=== PATIENT | female | born 1960 | race African-American/Black ===

== ENCOUNTER 2020-06-05 18:00 | Emergency (ER) | payer BC ==
[2020-06-05] MEDS ORDERED: MORPHINE 4 MG/ML SYR ONE (20:22)
[2020-06-05 20:23] LABS: Absolute Lymphocytes (CBC) 1.6 K/uL (0.7-4.9); Basophils % 0.8 % (0-1.3); Hematocrit 41.7 % (36.0-45.0); Lymphocytes % 27.5 % (15.3-44.8); MPV 8.3 fL (7.6-11.3); RBC Red Blood Cell Count 5.08 M/uL (3.86-4.86)
[2020-06-05] MEDS ORDERED: NA CHLORIDE 0.9% 1,000 ML ONE (20:23)
[2020-06-05] MEDS ORDERED: ONDANSETRON 4 MG/2 ML VIAL ONE (20:23)
[2020-06-05 20:33] LABS: ALT/SGPT 24 U/L (12-78); AST/SGOT 16 U/L (15-37); Albumin 3.8 g/dL (3.4-5.0); Alkaline Phosphatase 129 U/L (45-117); BUN Blood Urea Nitrogen 12 mg/dL (7-18); Bicarbonate 30 mmol/L (21-32); Bilirubin Direct < 0.1 mg/dL (0-0.2); Bilirubin Total 0.6 mg/dL (0.2-1.0); Glucose Level 95 mg/dL (74-106); Lipase 104 U/L (73-393); Potassium 3.8 mmol/L (3.5-5.1); Protein, Total 8.2 g/dL (6.4-8.2); Sodium Level 141 mmol/L (136-145)
--- NOTE | 2020-06-05 20:49 | RAD REPORT ---
EXAM DESCRIPTION: CT - Abdomen Pelvis W Contrast - 06/05/2020 8:34 pm CLINICAL HISTORY: ABD PAIN COMPARISON: No comparisons TECHNIQUE: Biphasic, helical CT imaging of the abdomen and pelvis was performed following 100 ml non -ionic IV contrast. No oral contrast administered. All CT scans are performed using dose optimization technique as appropriate and may include automated exposure control or mA/KV adjustment according to patient size. FINDINGS: No suspicious findings in the lung bases. The liver, spleen, and pancreas show no suspicious findings. Gallbladder and biliary tree are also wi thout suspicious finding. Symmetric renal function is seen with no hydronephrosis or suspicious renal mass. No pyelonephritis o r acute parenchymal process. No bladder abnormalities. No adrenal abnormalities. Uterus is absent. No ovarian abnormalities. No dilated bowel loops or bowel wall thickening. No appendicitis findings. No active bowel process se en. No free air, free fluid or inflammatory stranding. No hernia, mass or bulky lymphadenopathy. No suspicious bony findings. IMPRESSION: Contrast enhanced CT abdomen and pelvis showing no significant or suspicious finding.
[2020-06-05] MEDS ORDERED: LIDOCAINE VISCOUS 2% SOLN 15 ML UDC ONE (21:06)
[2020-06-05] MEDS ORDERED: FAMOTIDINE 20 MG TAB ONE (21:06)
[2020-06-05] MEDS ORDERED: MAGNES/ALUMIN/SIMET 30ML UCUP ONE (21:06)
--- NOTE | 2020-06-05 21:40 | ER ---
Nurse's Notes [facility] Name: Adriana Sinclair Age: 59 yrs Sex: Female : 1960 Arrival Date: 06/05/2020 Time: 18:00 Bed 20 Private MD: Diagnosis: Abdominal pain Presentation: 06/05 18:35 Chief complaint: Patient states: upper abdominal pain, epigastric pain radiating to ca1 chest and breast to head. It feels like acid reflux going to my head. It started yesterday. Reports diarrhea. Denies N/V. Coronavirus screen: Client denies travel out of the [place] in the last 14 days. diarrhea, Client presents with at least one sign or symptom that may indicate coronavirus-19. Standard/surgical mask placed on the client. Provider contacted for isolation considerations. Ebola Screen: Patient negative for fever greater than or equal to 101.5 degrees Fahrenheit, and additional compatible Ebola Virus Disease symptoms Patient denies exposure to infectious person. Patient denies travel to an Ebola-affected area in the 21 days before illness onset. No symptoms or risks identified at this time. Initial Sepsis Screen: Does the patient meet any 2 criteria? No. Patient's initial sepsis screen is negative. Does the patient have a suspected source of infection? No. Patient's initial sepsis screen is negative. Risk Assessment: Do you want to hurt yourself or someone else? Patient reports no desire to harm self or others. Onset of symptoms was June 05, 2020. 18:35 Method Of Arrival: Ambulatory ca1 18:35 Acuity: JORGE 2 ca1 Historical: - Allergies: 18:40 Aspirin; ca1 - Home Meds: 18:40 Folic Acid Oral [Active]; Dexilant oral oral [Active]; Ativan Oral as needed [Active]; ca1 Lexapro Oral [Active]; Carafate Oral [Active]; - PMHx: 18:40 Anxiety; Gastric Reflux; Aneurysm; ca1 - PSHx: 18:40 craniotomy; Hysterectomy; ca1 - Immunization history:: Adult Immunizations up to date, Flu vaccine is not up to date. - Social history:: Smoking status: Patient denies any tobacco usage or history of. Screenin:02 Abuse screen: Denies threats or abuse. Nutritional screening: No deficits noted. jd3 Tuberculosis screening: No symptoms or risk factors identified. Fall Risk Ambulatory Aid- None/Bed Rest/Nurse Assist (0 pts). Gait- Normal/Bed Rest/Wheelchair (0 pts) Mental Status- Oriented to own ability (0 pts). Total Red Fall Scale indicates No Risk (0-24 pts). Assessment: 18:59 General: Appears in no apparent distress. uncomfortable, Behavior is calm, cooperative, jd3 appropriate for age. Pain: Complains of pain in epigastric area Quality of pain is described as burning. Neuro: Level of Consciousness is awake, alert, obeys commands, Oriented to person, place, time, situation. Cardiovascular: Heart tones present Capillary refill < 3 seconds Patient's skin is warm and dry. Rhythm is regular. Respiratory: Airway is patent Respiratory effort is even, unlabored, Respiratory pattern is regular, symmetrical, Breath sounds are clear bilaterally. GI: Abdomen is round Bowel sounds present X 4 quads. Abd is soft and non tender X 4 quads. Reports nausea. : No signs and/or symptoms were reported regarding the genitourinary system. EENT: No signs and/or symptoms were reported regarding the EENT system. Derm: Skin is intact, Skin is dry, Skin is normal, Skin temperature is warm. Musculoskeletal: Circulation, motion, and sensation intact. Range of motion: intact in all extremities. 21:00 Reassessment: patient complaint of acid problem, ED provider aware with order made and rr5 carried out. 22:00 Reassessment: Patient appears in no apparent distress at this time. Patient is alert, rr5 oriented x 3, equal unlabored respirations, skin warm/dry/pink. discharge instruction given and explained without complaints made. Patient states feeling better. Patient states symptoms have improved. Vital Signs: 18:35 BP 136 / 90; Pulse 77; Resp 16 S; Temp 97.7(TE); Pulse Ox 100% on R/A; Weight 82.55 kg ca1 (R); Height 5 ft. 10 in. (177.80 cm) (R); Pain 9/10; 19:03 BP 158 / 76; Pulse 69; Resp 19 S; Pulse Ox 99% on R/A; jd3 21:00 BP 146 / 80; Pulse 65; Resp 19; Pulse Ox 99% ; rr5 22:00 BP 131 / 75; Pulse 60; Resp 17; Temp 98; Pulse Ox 99% ; rr5 18:35 Body Mass Index 26.11 (82.55 kg, 177.80 cm) ca1 ED Course: 18:00 Patient arrived in ED. ag5 18:38 Triage completed. ca1 18:40 Arm band placed on right wrist. ca1 18:51 Dwight Horowitz RN is Primary Nurse. jd3 19:02 Patient has correct armband on for positive identification. Placed in gown. Bed in low jd3 position. Call light in reach. Side rails up X 1. Adult w/ patient. security monitor on. Pulse ox on. NIBP on. 19:16 Rick Lewis MD is Attending Physician. pkl 20:20 Inserted saline lock: 20 gauge in right antecubital area, using aseptic technique. rr5 ,using aseptic technique. inserted by [facility] Blood collected. 20:34 CT Abd/Pelvis - IV Contrast Only In Process Unspecified. EDMS 22:00 No provider procedures requiring assistance completed. IV discontinued, intact, rr5 bleeding controlled, No redness/swelling at site. Pressure dressing applied. Administered Medications: 20:28 Drug: Zofran (Ondansetron) 4 mg Route: IVP; Site: right antecubital; rr5 21:10 Follow up: Response: No adverse reaction rr5 20:40 Drug: NS 0.9% 1000 ml Route: IV; Rate: 125 ml/hr; Site: right antecubital; rr5 22:00 Follow up: Response: No adverse reaction; IV Status: Order to discontinue infusion; IV rr5 Intake: 150ml 20:40 Drug: morphine 4 mg {Note: rass 0.} Route: IVP; Site: right antecubital; rr5 21:40 Follow up: Response: No adverse reaction; Pain is decreased; RASS: Alert and Calm (0) rr5 21:00 Drug: GI Cocktail without - (Maalox Suspension 30 ml, Lidocaine Liquid 2 % 15 rr5 ml) Route: PO; 22:00 Follow up: Response: No adverse reaction; Marked relief of symptoms rr5 21:02 Drug: Pepcid 20 mg Route: PO; rr5 22:00 Follow up: Response: No adverse reaction; Marked relief of symptoms rr5 Intake: 22:00 IV: 150ml; Total: 150ml. rr5 Outcome: 21:40 Discharge ordered by . sawyer 22:00 Discharged to home ambulatory. rr5 22:00 Condition: stable 22:00 Discharge instructions given to patient, Instructed on discharge instructions, follow up and referral plans. Demonstrated understanding of instructions, follow-up care. 22:03 Patient left the ED. rr5 Signatures: Dispatcher [employer] EDRick Patel MD MD pkl Davies, Jonathon, RN RN jd3 Roque, Raymond, RN RN rr5 Ange Montes RN RN ca1 Lauren Patricia 5
--- NOTE | 2020-06-05 21:41 | EDPHYS ---
Physician Documentation [facility] Name: Adriana Sinclair Age: 59 yrs Sex: Female : 1960 Arrival Date: 06/05/2020 Time: 18:00 Bed 20 Private MD: ED Physician Rick Lewis HPI: 06/05 19:51 This 59 yrs old Black Female presents to ER via Ambulatory with complaints of Abdominal pkl Pain, Chest Pain. 19:52 The patient presents with abdominal pain in the lower abdomen. Onset: The pkl symptoms/episode began/occurred last night. The symptoms radiate to radiating to chest. Associated signs and symptoms: Pertinent positives: diarrhea. Historical: - Allergies: 18:40 Aspirin; ca1 - Home Meds: 18:40 Folic Acid Oral [Active]; Dexilant oral oral [Active]; Ativan Oral as needed [Active]; ca1 Lexapro Oral [Active]; Carafate Oral [Active]; - PMHx: 18:40 Anxiety; Gastric Reflux; Aneurysm; ca1 - PSHx: 18:40 craniotomy; Hysterectomy; ca1 - Immunization history:: Adult Immunizations up to date, Flu vaccine is not up to date. - Social history:: Smoking status: Patient denies any tobacco usage or history of. ROS: 19:52 Eyes: Negative for injury, pain, redness, and discharge, ENT: Negative for injury, pkl pain, and discharge, Neck: Negative for injury, pain, and swelling, Cardiovascular: Negative for chest pain, palpitations, and edema, Respiratory: Negative for shortness of breath, cough, wheezing, and pleuritic chest pain. 19:52 Abdomen/GI: Positive for abdominal pain, of the right lower quadrant and left lower quadrant. 19:52 Back: Negative for pain at rest. 19:52 : Negative for urinary symptoms. 19:52 MS/extremity: Negative for acute changes. 19:52 Skin: Negative for rash. 19:52 Neuro: Negative for altered mental status. Exam: 19:52 Head/Face: Normocephalic, atraumatic. Eyes: Pupils equal round and reactive to light, pkl extra-ocular motions intact. Lids and lashes normal. Conjunctiva and sclera are non-icteric and not injected. Cornea within normal limits. Periorbital areas with no swelling, redness, or edema. ENT: Nares patent. No nasal discharge, no septal abnormalities noted. Tympanic membranes are normal and external auditory canals are clear. Oropharynx with no redness, swelling, or masses, exudates, or evidence of obstruction, uvula midline. Mucous membranes moist. Neck: Trachea midline, no thyromegaly or masses palpated, and no cervical lymphadenopathy. Supple, full range of motion without nuchal rigidity, or vertebral point tenderness. No Meningismus. Chest/axilla: Normal chest wall appearance and motion. Nontender with no deformity. No lesions are appreciated. Cardiovascular: Regular rate and rhythm with a normal S1 and S2. No gallops, murmurs, or rubs. Normal PMI, no JVD. No pulse deficits. Respiratory: Lungs have equal breath sounds bilaterally, clear to auscultation and percussion. No rales, rhonchi or wheezes noted. No increased work of breathing, no retractions or nasal flaring. 19:52 Abdomen/GI: Bowel sounds: normal, Palpation: soft, mild abdominal tenderness, in the right lower quadrant and left lower quadrant. 19:52 Back: Exam negative for acute changes. 19:52 : Exam negative for acute changes. 19:52 Musculoskeletal/extremity: Exam is negative for acute changes. 19:52 Skin: Exam negative for rash. 19:52 Neuro: Orientation: is normal, Mentation: is normal, Cranial nerves: grossly normal, Motor: is normal. Vital Signs: 18:35 BP 136 / 90; Pulse 77; Resp 16 S; Temp 97.7(TE); Pulse Ox 100% on R/A; Weight 82.55 kg ca1 (R); Height 5 ft. 10 in. (177.80 cm) (R); Pain 9/10; 19:03 BP 158 / 76; Pulse 69; Resp 19 S; Pulse Ox 99% on R/A; jd3 21:00 BP 146 / 80; Pulse 65; Resp 19; Pulse Ox 99% ; rr5 22:00 BP 131 / 75; Pulse 60; Resp 17; Temp 98; Pulse Ox 99% ; rr5 18:35 Body Mass Index 26.11 (82.55 kg, 177.80 cm) ca1 MDM: 19:16 Patient medically screened. pkl 21:32 Data reviewed: vital signs, nurses notes, lab test result(s), radiologic studies, CT pkl scan. 21:36 Data reviewed: vital signs, nurses notes, lab test result(s), radiologic studies, CT pkl scan. ED course: Patient feeling better. Discussed lab and CT Scan results with patient. Advised to follow up with her Paralegal Instructor as scheduled. Patient understood instructions. 06/05 19:48 Order name: Basic Metabolic Panel; Complete Time: 21:31 pkl 06/05 19:48 Order name: CBC with Diff; Complete Time: 21:31 pkl 06/05 19:48 Order name: Hepatic Function; Complete Time: 21:31 pkl 06/05 19:48 Order name: Lipase; Complete Time: 21:31 pkl 06/05 19:48 Order name: CT Abd/Pelvis - IV Contrast Only; Complete Time: 21:31 pkl 06/05 18:51 Order name: EKG; Complete Time: 18:51 ca1 06/05 18:51 Order name: EKG - Nurse/Tech; Complete Time: 18:51 ca1 06/05 19:48 Order name: IV Saline Lock; Complete Time: 20:09 pkl 06/05 19:48 Order name: Labs collected and sent; Complete Time: 20:09 pkl Administered Medications: 20:28 Drug: Zofran (Ondansetron) 4 mg Route: IVP; Site: right antecubital; rr5 21:10 Follow up: Response: No adverse reaction rr5 20:40 Drug: NS 0.9% 1000 ml Route: IV; Rate: 125 ml/hr; Site: right antecubital; rr5 22:00 Follow up: Response: No adverse reaction; IV Status: Order to discontinue infusion; IV rr5 Intake: 150ml 20:40 Drug: morphine 4 mg {Note: rass 0.} Route: IVP; Site: right antecubital; rr5 21:40 Follow up: Response: No adverse reaction; Pain is decreased; RASS: Alert and Calm (0) rr5 21:00 Drug: GI Cocktail without - (Maalox Suspension 30 ml, Lidocaine Liquid 2 % 15 rr5 ml) Route: PO; 22:00 Follow up: Response: No adverse reaction; Marked relief of symptoms rr5 21:02 Drug: Pepcid 20 mg Route: PO; rr5 22:00 Follow up: Response: No adverse reaction; Marked relief of symptoms rr5 Disposition: 06/05/20 21:40 Discharged to Home. Impression: Abdominal pain. - Condition is Stable. - Medication Reconciliation Form, Thank You Letter, Antibiotic Education, Prescription Opioid Use form. - Follow up: Private Physician; When: 2 - 3 days; Reason: Re-evaluation by your physician. - Problem is new. - Symptoms have improved. Signatures: Dispatcher [employer] EDMS Rick Lewis MD MD pkl Sascha Murphy RN RN rr5 Ange Montes RN RN ca1 Corrections: (The following items were deleted from the chart) 22:03 21:40 06/05/2020 21:40 Discharged to Home. Impression: Abdominal pain. Condition is rr5 Stable. Forms are Medication Reconciliation Form, Thank You Letter, Antibiotic Education, Prescription Opioid Use. Follow up: Private Physician; When: 2 - 3 days; Reason: Re-evaluation by your physician. Problem is new. Symptoms have improved. pkl
[2020-06-06 07:33] VITALS: TEMP 97.7
[2020-06-06 07:37] VITALS: O2SAT 99
[2020-06-06 07:38] VITALS: BP 146/80
--- NOTE | 2020-06-06 12:05 | EKG ---
Test Date: 2020-06-05 Test Time: 18:54:34 Data Management Engineer: SATISH MEASUREMENT RESULTS: Intervals: Rate: 70 OK: 114 QRSD: 90 QT: 390 QTc: 421 [place]: P: 8 OK: 114 QRS: 17 T: -50 INTERPRETIVE STATEMENTS: Normal sinus rhythm Left ventricular hypertrophy with repolarization abnormality Abnormal ECG Compared to ECG 03/08/2008 01:27:28 Left ventricular hypertrophy now present Early repolarization now present Electronically Signed On 06-06-20 12:03:12 [employer] OFFICER by Bo Grady
== END 2020-06-05 22:03 | disposition home or self-care (01) ==
LOC: ER 18:00
DX: R10.30 Lower abdominal pain, unspecified (principal); K21.9 Gastro-esophageal reflux disease without esophagitis; F41.9 Anxiety disorder, unspecified; Z88.6 Allergy status to analgesic agent
CPT/HCPCS: 96361; 93005; 85025; 80048; 36415; 82565; 80076; 83690; 74177; 96375; 96374; 99284; Q9967; J7030; J2405

== ENCOUNTER 2021-09-23 13:00 | Emergency (ER) | payer OTHER, SELFPAY ==
--- OUTSIDE RECORDS SUMMARY | 2021-09-23 13:05 | XMS REPORT | Continuity of Care Document ---
:1960 Author Organization [facility] t Address [address] [place] [address] Care Team Providers Name Role Phone Raz Doll Primary Care Physician VENKATESH Attending Clinician Unavailable NAVEED CASTELLON Attending Clinician Unavailable MD JUSTYN FRAZIER Attending Clinician Unavailable FREDDIE Attending Clinician Unavailable Nurse, Pob Immunization Attending Clinician Unavailable Agusto Stacy DO Attending Clinician Taylor Way APRN Attending Clinician AUREA Attending Clinician Unavailable MD Mary MILAN Attending Clinician Unavailable BJORN Attending Clinician Unavailable Doctor Unassigned, Name Attending Clinician Unavailable Singer PAULA Attending Clinician Attending Clinician Unavailable Heladio HUYNH Attending Clinician Naveed Castellon MD Attending Clinician Venkatesh HUYNH Attending Clinician TIM Attending Clinician Unavailable PROCEDURE Attending Clinician Unavailable SUE Attending Clinician Unavailable CARTER Attending Clinician Unavailable POP Attending Clinician Unavailable V[place]a HONEYCUTT Attending Clinician Unavailable ARIANA Attending Clinician Unavailable BERENICE Attending Clinician Unavailable VASCULAR Attending Clinician Unavailable VENKATESH Admitting Clinician Unavailable NAVEED CASTELLON Admitting Clinician Unavailable MD JUSTYN FRAZIER Admitting Clinician Unavailable AUREA Admitting Clinician Unavailable MD Mary MILAN Admitting Clinician Unavailable Payers Payer Name Policy Type Policy Number Effective Date Expiration Date Melissa DURAN OPEN [id number] 2016 2017 00:00:00 ACCESS HMO NAP 00:00:00 Problems Condition Condition Condition Status Onset Resolution Last Treating Co mments Source Name Details Category Date Date Treatment Clinician Date Venous Venous Disease Active 2017-07 [facility] insufficie insufficie 0-31 Co llege ncy ncy 00:00: of 00 Medicin e Pain of Pain of Disease Active 2017-07 [facility] left lower left lower 0-31 Co llege extremity extremity 00:00: of 00 Medicin e NUMBNESS/T Diagnosis Active 2016-09-17 Memoria INGLING LT 2-21 14:01:00 l HAND 00:00: Maximiliano NUMBNESS/T 00 INGLING LT HAND Active 09/17/2016 [facility] I67.1 - Diagnosis Active 2016-02-16 Me moria "CEREBRAL 7-13 12:02:00 l ANEURYSM, I67.1 - 00:01: Herm ivette NONRUPTURE "CEREBRAL 00 D" ANEURYSM, NONRUPTURE D" Active 6 OPIRaz Maximiliano Essential Essential Disease Active 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 [facility] OPID [place] BDDC/ Diagnosis Active 2013-072014-06-09 Mem oria IRRITABLE 0-02 15:32:00 l BOWEL BDDC/ 00:00: Maximiliano SYNDROME IRRITABLE 00 BOWEL SYNDROME Active 04/28/2014 [facility] Anxiety Problem Active 2017-05-10 Asael kristan state 9- 01:25:08 l (finding) Anxiety 00:00: Herm ivette state 00 (finding) Active 04/19/2014 Problem 05/10/2017 Data migrated from Patient Feed on 12/26/14. [facility] OPID Maximiliano Cervical Problem Active 2017-05-10 Mem [facility]ria radiculopa 04-19 01:25:08 l thy Cervical 00:00: [place] n (disorder) radiculopa 00 thy (disorder) Active 04/19/2014 Problem 05/10/2017 Data migrated from Patient Feed on 12/26/14. [facility] OPID [place] Temporal Problem Active 2017-05-10 Mem oria arteritis 04-19 01:25:08 l (disorder) Temporal 00:00: He rmann arteritis 00 (disorder) Active 04/19/2014 Problem 05/10/2017 Data migrated from Patient Feed on 12/26/14. [facility] JANRaz Maximiliano Memory Memory Disease Active [facility] loss loss 6-18 College 00:00: of 00 Medicin e GERD/ SAW Diagnosis Active 2014-04-[address] 01-11 08:50:00 l YEARS AGO GERD/ 00:00: Coleman L[address] 5 YEARS AGO Active 01/11/2014 [facility] Laryngopha Laryngopha Disease Active [facility] ryngeal ryngeal 1-30 College reflux reflux 00:00: of (LPR) (LPR) 00 Medicin e Monoclonal Monoclonal Disease Active 2012-07 [facility] gammopathy gammopathy 2-30 Co llege 00:00: of 00 Medicin e Memory Memory Disease Active [facility] loss loss 7-03 College 00:00: of 00 Medicin e Multiple Multiple Disease Active [facility] thyroid thyroid 3-22 College nodules nodules 00:00: of 00 Medicin e Cerebral Cerebral Disease Active [facility] aneurysm aneurysm 2-12 Colleg e 00:00: of 00 Medicin e FERNANDO FERNANDO Disease Active [facility] (generaliz (generaliz 2-12 Co llege ed anxiety ed anxiety 00:00: of disorder) disorder) 00 Medi rose e Migraine Problem Active 2011-072017-05-10 Mem oria without 0-18 01:25:08 l aura Migraine 00:00: Coleman n (disorder) without 00 aura (disorder) Active 05/14/2012 Problem 05/10/2017 Data migrated from [facility] on 12/26/14. [facility] UNA Maximiliano [id number] - Diagnosis Active 2011-12-19 M emoria CEREBROSPI 2-16 20:05:00 l NAL R [id number] - 00:01: Coleman n CEREBROSPI 00 NAL R Active 09/12/2011 OPID Maximiliano F/U Diagnosis Active 2011-12-27 Mem oria - 17:04:00 l F/U 00:00: Maximiliano 00 Active 08/06/2011 [facility] HEAD Diagnosis Active 2010-072011-07-26 Mem oria SWELLING. 09-23 14:11:00 l HEAD 00:00: [place] SWELLING. 00 Active 07/23/2011 [facility] OTHER Diagnosis Active 2010-072011-07-19 Mem oria 09-19 17:13:00 l OTHER 00:00: Maximiliano 00 Active 07/19/2011 [facility] Aneurysm Problem Resolve 2017-05-10 Me moria (disorder) d 01:25:08 l Aneurysm [place] n (disorder) Resolved Problem 05/10/2017 [facility] OPID Maximiliano Anxiety Problem Resolve 2017-05-10 Mem oria (finding) d 01:25:08 l Anxiety [place] (finding) Resolved Problem 05/10/2017 [facility] OPID Maximiliano Hypertensi Problem Resolve 2017-05-10 Memoria ve d 01:25:08 l disorder, Maximiliano systemic Hypertensi arterial ve (disorder) disorder, systemic arterial (disorder) Resolved Problem 05/10/2017 [facility] OPID [place] Irritable Problem Resolve 2017-05-10 M emoria colon d 01:25:08 l (disorder) Coleman n Irritable colon (disorder) Resolved Problem 05/10/2017 [facility] OPID [place] Pain Problem Active 2013-01-31 Memor ia 20:59:27 l Pain [place] Active Problem 01/31/2013 [facility], [facility], OPID [place] Tingling Problem Active 2013-01-31 Mem oria 20:59:27 l Tingling [place] n Active Problem 01/31/2013 [facility], [facility], UNA [place] Nonrupture Problem Active 2017-05-10 M emoria d cerebral 01:25:08 l aneurysm [place] (disorder) Nonrupture d cerebral aneurysm (disorder) Active Problem 05/10/2017 Data migrated from Patient Feed on 03/21/15.Da ta migrated from Patient Feed on 12/26/14. [facility], [facility] [place] Pain Problem Active 2017-05-10 Memor ia (finding) 01:25:08 l Pain [place] (finding) Active Problem 05/10/2017 [facility], [facility] [place], [facility] [place] No known No known Disease Unive rs active active ity of problems problems [facility] Pins and Problem Active 2017-05-10 Mem oria needles 01:25:08 l (finding) Pins and Her lopez needles (finding) Active Problem 05/10/2017 [facility], [facility] [place], [facility] History of History of Problem Resolve Univers Memory Memory d ity of [place]apses [place] Worsening Worsening ans History of History of Problem Resolve Univers back pain back pain d ity of [place] Physici ans Cerebral Cerebral Problem Active Unive rs aneurysm, aneurysm, ity of [place]rupture [place]ure [place] ans H/O H/O Problem Active Univers aneurysm aneurysm ity of [place] [facility] Personal Personal Problem Resolve Univ ers history of history of d it y of asthma asthma [place] [facility] Postnasal Postnasal Problem Active Uni vers drip drip ity of [place] [facility] ans Amnesia Amnesia Problem Active Univers (retrograd (retrograd it y of e) e) [place] [facility] Tingling Tingling Problem Active Unive rs ity of [place] [facility] Cerebrospi Cerebrospi Problem Active U nivers nal fluid nal fluid ity of rhinorrhea [place]in[place] [facility] Normal Normal Problem Active Univers routine routine ity of physical physical [place] examinatio examinatio Ph ysici n n ans Common Common Problem Active Univers migraine migraine ity of without without [place] aura aura Physici ans Cognitive Cognitive Problem Active Uni vers deficits deficits ity of as late as late [place] effect of effect of Phys ici cerebrovas cerebrovas an s cular cular disease disease Obstructiv Obstructiv Problem Active U nivers e sleep e sleep ity of apnea apnea [place] Phys[facility] ans AAA AAA Problem Active Univers (abdominal (abdominal it y of aortic aortic [place] aneurysm) aneurysm) Phys ici ans Leg pain Leg pain Problem Active Unive rs ity of [place] [facility] ans Cervical Cervical Problem Active Unive rs radiculopa radiculopa it y of thy thy [place] [facility] ans Ulnar Ulnar Problem Active Univers neuropathy neuropathy it y of of left of left [place] upper upper Physici extremity extremity ans Elbow pain Elbow pain Problem Active U nivers ity of [place] [facility] ans Epicondyli Epicondyli Problem Active U nivers tis, tis, ity of lateral, lateral, [place] left left Physici ans Knee pain Knee pain Problem Active Uni vers ity of [place] [facility] ans Back pain Back pain Problem Active Uni vers ity of [place] [facility] ans Polyneurop Polyneurop Problem Active U nivers athy athy ity of [place] Physici ans Allergies, Adverse Reactions, Alerts Allergy Allergy Status Severity Reaction(s) Onset Inactive Treating Comm ents Source Name Type Date Date Clinician Aspirin Propensi Active Nausea 2016-07 Univers ty to and/or 2-12 ity of adverse Vomiting 00:00: [place] reaction 00 Medical s Branch ASPIRIN DRUG Active N/V 2016-07 Univers INGREDI -12 ity of 00:00: [place] 00 Medical Branch aspirin< aspirin< Active 2011-07 Memori a sup>1</s sup>1</s 0-18 l up> up> 05:00: Maximiliano 00 Aspirin Propensi Active Nausea Only [facility] ty to 12-22 College adverse 00:00: of reaction 00 Medicin s to e drug ASPIRIN Allergy Active Nausea [facility] 12-22 00:00: 00 Clonazep Propensi Active Hallucinatio [facility] am ty to ns 04-18 [facility] adverse 00:00: change of reaction 00 Medicin s to e drug CLONAZEP Allergy Active Other [facility] AM 04-18 00:00: 00 Aspirin Allergy Active Univers POWD to drug ity of (finding [place] ) Physici ans Aspirin Allergy Active Nausea Univers TABS to drug ity of (finding [place] Physici ans aspirin aspirin Active Марина [place] Family History Family Member Diagnosis Comments Start Date Stop Date Source Unknown Family Family history of Family History University of Member Cerebral Artery [place] [facility] Aneurysm Unknown Family Family history of Family History University of Member Cancer [place] Physicia ns Unknown Family Family history of Family History University of Member Hypertension [place] Physic ians Unknown Family Family history of Family History University of Member Parkinson Disease [place] P [facility]ys[facility] Unknown Family Family history of Family History University of Member Stroke Syndrome [place] [facility] Social History Social Habit Start Date Stop Date Quantity Comments Source Exposure to Not sure [facility] SARS-CoV-2 [place] Medical (event) Branch Alcohol Comment Alcoholic [facility] [email or web address] llege of Drinks/day: yes Medicine Alcohol intake 2020-12-19 2020-12-19 Ex-drinker [facility] Col lege of 00:00:00 00:00:00 (finding) Medicine Tobacco use and 2020-05-26 2020-05-26 Never used [employer] Co llege of exposure 00:00:00 00:00:00 Medicine Social History 2016-01-22 2016-01-22 [facility] 17:46:23 17:46:23 Sex Assigned At [birth year] [facility] 00:00:00 00:00:00 Smoking Status Start Date Stop Date Source Tobacco smoking consumption unknown [facility] Never smoker [facility] o f Medicine Medications Ordered Filled Start Stop Current Ordering Indication Dosage Frequency Signature Comments Components Source Medication Medication Date Date Medication? Clinician (SIG) Name Name ondansetron 2020- No 4mg 4 mg, Slow Univers (ZOFRAN 12-28 IV Push, ity of (PF)) 05:47: 05:52 ONCE, 1 [place] injection 4 00 :00 dose, Ana Med ical mg 12/28/20 at Branch 0100, TK morpHINE 2020- No 4mg 4 mg, Slow Un yissel injection 4 12-28- IV Push, ity of mg 05:47: 05:52 ONCE, 1 [place] 00 :00 dose, Ana Medical 12/28/20 at Branch 0100, STAT dexlansopra Yes Take by Un yissel zole -03 mouth. ity of (DEXILANT 01:03: [place] ORAL) 36 Medical Branch lorazepam 2021-0 Yes Take by [facility] ers (ATIVAN 6-03 mouth. ity of ORAL) 01:03: [place] [address] Medical Branch dexlansopra 2020-0 Yes Take by Un yissel zole 6-03 mouth. ity of (DEXILANT 01:03: [place] ORAL) 36 Medical Branch lorazepam 0 Yes Take by [facility] ers (ATIVAN 6-03 mouth. ity of ORAL) 01:03: [place] [address] Medical Branch gabapentin 2020-0 Yes 600mg Take 600 Un yissel 600 mg 6-03 mg by ity of tablet 00:20: mouth as [place] 07 needed. Medical Branch gabapentin 2020-0 Yes 600mg Take 600 Un yissel 600 mg 6-03 mg by ity of tablet 00:20: mouth as [place] 07 needed. Medical Branch methocarbam 2020-0 2020- No [id number] 500mg Take 1 Univers oL 500 mg [id number] tablet by ity of tablet 00:00: 04:59 mouth 3 [place] 00 :00 (three) Medical times Branch daily for 5 days. dexlansopra 0 Yes Take by Un yissel zole 6-02 mouth. ity of (DEXILANT 20:03: [place] ORAL) 36 Medical Branch lorazepam Yes Take by [facility] ers (ATIVAN 6-02 mouth. ity of ORAL) 20:03: [place] [address] Medical Branch gabapentin 2020-0 Yes 600mg Take 600 Un yissel 600 mg 6-02 mg by ity of tablet 19:20: mouth as [place] 07 needed. Medical Branch linaclotide 0 Yes Take by Un yissel (LINZESS 4-20 mouth. ity of ORAL) 19:08: [place] [address] Medical Branch linaclotide 2020-0 Yes Take by Un yissel (LINZESS 4-20 mouth. ity of ORAL) 19:08: [place] [address] Medical Branch linaclotide 2020-0 Yes Take by Un yissel (LINZESS 4-20 mouth. ity of ORAL) 14:08: [place] [address] Medical Branch lorazepam 2020-0 Yes .5mg Take 0.5 [place] (ATIVAN) 2-26 mg by [place] 0.5 MG 14:08: mouth of tablet 54 daily as Medicin needed for e Anxiety. folic acid 0 Yes 1mg Take 1 mg [facility] (FOLVITE) 1 2-26 by mouth [place] MG tablet 14:08: daily. of 54 Medicin e Cholecalcif 0 Yes Take by [facility] pedro 2-26 mouth. [place] (VITAMIN 14:08: of D3) 5000 54 Medicin units TABS e gabapentin 2020-0 Yes 300mg Take 300 [facility] (NEURONTIN) 2-26 mg by [place] 300 MG 14:08: mouth two of capsule 54 times Medicin daily. e lorazepam Yes .5mg Take 0.5 [facility] [facility] (ATIVAN) 2-26 mg by [place] 0.5 MG 08:08: mouth of tablet 54 daily as Medicin needed for e Anxiety. folic acid Yes 1mg Take 1 mg [facility] (FOLVITE) 1 2-26 by mouth [place] MG tablet 08:08: daily. of 54 Medicin e Cholecalcif 0 Yes Take by [facility] pedro 2-26 mouth. [place] (VITAMIN 08:08: of D3) 5000 54 Medicin units TABS e gabapentin Yes 300mg Take 300 [facility] (NEURONTIN) 2-26 mg by [place] 300 MG 08:08: mouth two of capsule 54 times Medicin daily. e omeprazole 0 2020- No 40mg Take 1 [facility] (PRILOSEC) 2-26 08- capsule by Co llege 40 MG 00:00: 04:59 mouth of capsule 00 :00 daily for Medicin 180 days. e omeprazole 2020- No 40mg Take 1 [facility] (PRILOSEC) 2-26 08- capsule by Co llege 40 MG 00:00: 04:59 mouth of capsule 00 :00 daily for Medicin 180 days. e sucralfate 2019-07 Yes TAKE 1 [facility] (CARAFATE) 2-23 TABLET BY [place] 1 g tablet 00:00: MOUTH of 00 TWICE Medicin DAILY FOR e 14 DAYS sucralfate 2019-07 Yes TAKE 1 [facility] (CARAFATE) 2-23 TABLET BY [place] 1 g tablet 00:00: MOUTH of 00 TWICE Medicin DAILY FOR e 14 DAYS lorazepam 2019-07 Yes .5mg Take 0.5 [place] [facility] (ATIVAN) 0-29 mg by [place] 0.5 MG 16:02: mouth of tablet 40 daily as Medicin needed for e Anxiety. folic acid 2019-07 Yes 1mg Take 1 mg [facility] (FOLVITE) 1 0-29 by mouth [place] MG tablet 16:02: daily. of 40 Medicin e Cholecalcif 2019-07 Yes Take by [facility] pedro 0-29 mouth. [place] (VITAMIN 16:02: of D3) 5000 40 Medicin units TABS e gabapentin 2019-07 Yes 300mg Take 300 [facility] (NEURONTIN) 0-29 mg by [place] 300 MG 16:02: mouth two of capsule 40 times Medicin daily. e sucralfate 2019-07 2020- No 1g Take 10 mL [facility] (CARAFATE) 0-28 10-30 by mouth [place] 1 GM/10ML 00:00: 00:00 two times of suspension 00 :00 daily for Medi rose 7 days. e lorazepam 2019-07 Yes .5mg Take 0.5 [place] (ATIVAN) 0-21 mg by [place] 0.5 MG 14:57: mouth of tablet 19 daily as Medicin needed for e Anxiety. folic acid 2019-07 Yes 1mg Take 1 mg [facility] (FOLVITE) 1 0-21 by mouth [place] MG tablet 14:57: daily. of 19 Medicin e Cholecalcif 2019-07 Yes Take by [facility] pedro 0-21 mouth. [place] (VITAMIN 14:57: of D3) 5000 19 Medicin units TABS e gabapentin 2019-07 Yes 300mg Take 300 [facility] (NEURONTIN) 0-21 mg by [place] 300 MG 14:57: mouth two of capsule 19 times Medicin daily. e hyoscyamine 2019-[address] 1 [facility] (LEVSIN/SL) 0-21 Tab under Col lege 0.125 MG SL 00:00: the tongue of tablet 00 every 6 Medicin hours as e needed for Cramping. hyoscyamine 2019-[address] 1 [facility] (LEVSIN/SL) 0-21 Tab under Col lege 0.125 MG SL 00:00: the tongue of tablet 00 every 6 Medicin hours as e needed for Cramping. Na 2019-07 Yes [SUPREP] [place] Sulfate-K 0-21 Take as College Sulfate-Mg 00:00: directed. of Sulf 00 Medicin (SUPREP e BOWEL PREP KIT) 17.5-3.13-1 .6 GM/177ML SOLN Dexlansopra 2019-07 Yes 60mg Take 60 mg [place] zole 0-21 by mouth [place] (DEXILANT) 00:00: daily. of 60 MG CPDR 00 Medicin e hyoscyamine 2019-[address] 1 [facility] (LEVSIN/SL) 0-21 Tab under Col lege 0.125 MG SL 00:00: the tongue of tablet 00 every 6 Medicin hours as e needed for Cramping. Na 2019-07 Yes [SUPREP] [place] Sulfate-K 0-21 Take as College Sulfate-Mg 00:00: directed. of Sulf 00 Medicin (SUPREP e BOWEL PREP KIT) 17.5-3.13-1 .6 GM/177ML SOLN Dexlansopra 2019-07 Yes 60mg Take 60 mg [facility] zole 0-21 by mouth [place] (DEXILANT) 00:00: daily. of 60 MG CPDR 00 Medicin e hyoscyamine 2019-[address] 1 [facility] (LEVSIN/SL) 0-21 Tab under Col lege 0.125 MG SL 00:00: the tongue of tablet 00 every 6 Medicin hours as e needed for Cramping. Dexlansopra 2019-07- No 60mg Take 60 mg [facility] zole 0-21 -26 by mouth [place] (DEXILANT) 00:00: 00:00 daily. of 60 MG CPDR 00 :00 Medicin e Na 2019-07- No [SUPREP] [place] Sulfate-K 0-21 02- Take as Colleg e Sulfate-Mg 00:00: 00:00 directed. o f Sulf 00 :00 Medicin (SUPREP e BOWEL PREP KIT) 17.5-3.13-1 .6 GM/177ML SOLN omeprazole 2019- No 40mg Take 1 [place] (PRILOSEC) 6-24 10-21 by mouth [place] 40 MG 00:00: 00:00 daily. of capsule 00 :00 Medicin e dicyclomine 2019- No 10mg Take 1 Cap [facility] (BENTYL) 10 6-17 10-21 by mouth 4 C ollege MG capsule 00:00: 00:00 times of 00 :00 daily Medicin (before e meals and nightly). 1 by mouth four times a day lansoprazol 2020-0 2020- No 30mg Take 1 [place] e 12-01 10-21 by mouth College (PREVACID) 00:00: 00:00 two times o f 30 MG 00 :00 daily. Medicin capsule e azithromyci 2018-07 Yes [id number] 250mg Take 1 Univers n 2-08 tablet by ity of (ZITHROMAX 00:00: mouth [place] Z-NICANOR) 250 00 SEE-INSTRU Med ical mg tablet CTIONS. Branch Take 500 mg day 1, then 250 mg days 2 to 5. benzonatate 2018-07 Yes [id number] 100mg Take 1 Univers 100 mg 2-08 capsule by ity of capsule 00:00: mouth 3 [place] 00 (three) Medical times Branch daily as needed for Cough. acetaminoph 2018-07 Yes [id number] 1{tbl} Take 1-2 Univers en-codeine 2-08 tablets by ity of 300-30 mg 00:00: mouth [place] tablet 00 every 4 Medical (four) Branch hours as needed (cough). loratadine- 2018-07 Yes [id number] 1{tbl} Take 1 Univers pseudoephed 2-08 tablet by ity of rine 00:00: mouth [place] (CLARITIN-D 00 daily. Medica l 24 HOUR) Branch 10-240 mg per 24 hr tablet azithromyci 2018-07 Yes [id number] 250mg Take 1 Univers n 2-08 tablet by ity of (ZITHROMAX 00:00: mouth [place] Z-NICANOR) 250 00 SEE-INSTRU Med ical mg tablet CTIONS. Branch Take 500 mg day 1, then 250 mg days 2 to 5. benzonatate 2018-07 Yes [id number] 100mg Take 1 Univers 100 mg 2-08 capsule by ity of capsule 00:00: mouth 3 [place] 00 (three) Medical times Branch daily as needed for Cough. acetaminoph 2018-07 Yes [id number] 1{tbl} Take 1-2 Univers en-codeine 2-08 tablets by ity of 300-30 mg 00:00: mouth [place] tablet 00 every 4 Medical (four) Branch hours as needed (cough). loratadine- 2018-07 Yes [id number] 1{tbl} Take 1 Univers pseudoephed 2-08 tablet by ity of rine 00:00: mouth [place] (CLARITIN-D 00 daily. Medica l 24 HOUR) Branch 10-240 mg per 24 hr tablet azithromyci 2018-07 Yes [id number] 250mg Take 1 Univers n 2-08 tablet by ity of (ZITHROMAX 00:00: mouth [place] Z-NICANOR) 250 00 SEE-INSTRU Med ical mg tablet CTIONS. Branch Take 500 mg day 1, then 250 mg days 2 to 5. benzonatate 2018-07 Yes [id number] 100mg Take 1 Univers 100 mg 2-08 capsule by ity of capsule 00:00: mouth 3 [place] 00 (three) Medical times Branch daily as needed for Cough. acetaminoph 2018-07 Yes [id number] 1{tbl} Take 1-2 Univers en-codeine 2-08 tablets by ity of 300-30 mg 00:00: mouth [place] tablet 00 every 4 Medical (four) Branch hours as needed (cough). loratadine- 2018-07 Yes [id number] 1{tbl} Take 1 Univers pseudoephed 2-08 tablet by ity of rine 00:00: mouth [place] (CLARITIN-D 00 daily. Medica l 24 HOUR) Branch 10-240 mg per 24 hr tablet AMITIZA 8 2017-07 Yes TAKE 1 [facility] MCG CAPS 1-15 CAPSULE BY Colle ge 00:00: MOUTH of 00 DAILY. Medicin e AMITIZA 2017-07 Yes TAKE 1 [place] MCG CAPS 1-15 CAPSULE BY Colle ge 00:00: MOUTH of 00 DAILY. Medicin e AMITIZA 2017-07 Yes TAKE 1 [facility] MCG CAPS 1-15 CAPSULE BY Colle ge 00:00: MOUTH of 00 DAILY. Medicin e AMITIZA 2017-07 Yes TAKE 1 [facility] MCG CAPS 1-15 CAPSULE BY Colle ge 00:00: MOUTH of 00 DAILY. Medicin e PROAIR HFA Yes INHALE 1-2 [place] 108 (90 5-25 PUFFS [place] [employer]) 00:00: EVERY 4 of MCG/ACT 00 HOURS Medicin inhaler NEEDED FOR e ASTHMA. PROAIR HFA Yes INHALE 1-2 [place] 108 (90 5-25 PUFFS [place] [employer]) 00:00: EVERY 4 of MCG/ACT 00 HOURS Medicin inhaler NEEDED FOR e ASTHMA. PROAIR HFA 0 Yes INHALE 1-2 [place] 108 (90 5-25 PUFFS [place] [employer]) 00:00: EVERY 4 of MCG/ACT 00 HOURS Medicin inhaler NEEDED FOR e ASTHMA. PROAIR HFA Yes INHALE 1-2 [facility] [place] 108 (90 5-25 PUFFS [place] [employer]) 00:00: EVERY 4 of MCG/ACT 00 HOURS Medicin inhaler NEEDED FOR e ASTHMA. Linaclotide 2017- Yes [id number] 1{capsu Take 1 Cap [facility] (LINZESS) 2-06 le} by mouth Colleg e 72 MCG CAPS 00:00: at of 00 bedtime. Medicin e Linaclotide Yes [id number] 1{capsu Take 1 Cap [facility] (LINZESS) 2-06 le} by mouth Colleg e 72 MCG CAPS 00:00: at of 00 bedtime. Medicin e Linaclotide Yes [id number] 1{capsu Take 1 [place] (LINZESS) 2-06 le} by mouth Colleg e 72 MCG CAPS 00:00: at of 00 bedtime. Medicin e Linaclotide Yes [id number] 1{capsu Take 1 [facility] [place] (LINZESS) 2-06 le} by mouth Colleg e 72 MCG CAPS 00:00: at of 00 bedtime. 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, Duration: 1 doses or times, Stop date: 09/17/16 14:06:00 [employer] Magnesium 2016-0 No Notes: Memori a Sulfate 2-21 WASTE: F/P l 20:03: - Sink; E [place] 00 - Municipal Trash Bin Acetaminoph 2013-07 Yes 0 Memori a en 325 MG / 0-01 Refill(s) l Hydrocodone 20:36: [place] n Bitartrate 00 7.5 MG Oral Tablet [Hazel [place] 7.5/325] carvedilol 2013-07 Yes 0 [facility] 12.5 mg 0-01 Refill(s) l oral tablet 20:36: Coleman n 00 topiramate 2013-07 Yes 0 Memoria 25 MG Oral 0-01 Refill(s) l Tablet 20:36: [place] [Topamax] 00 Ibuprofen Ibuprofen 2011-07 Yes JESU 1 qd prn Univers 800 MG Oral 800 MG Oral 2-14 GROTTA ity of Tablet Tablet 00:00: M.D. [place] 00 Physici ans LORazepam LORazepam 2011-07 Yes JESU 1 QD TAKE 1 Univers 0.5 MG Oral 0.5 MG Oral 2-10 GR[place] TABLET ity of Tablet Tablet 00:00: [place]N [place] 00 [place] Phys[place] ans Fluticasone Fluticasone Yes ARIANA Q0.5D USE 1 Univers Propionate Propionate 2-14 NIRU M.D. SPRAY IN ity of 50 MCG/ACT 50 MCG/ACT 00:00: EACH [place] Nasal Nasal 00 NOSTRIL Physici Suspension Suspension TWICE an s DAILY. Gabapentin Gabapentin Yes Uni vers 300 MG Oral 300 MG Oral i ty of Capsule Capsule [place] Physici ans Omeprazole Omeprazole Yes Uni vers 40 MG Oral 40 MG Oral ity of Capsule Capsule [place] Delayed Delayed Physici Release Release ans Immunizations Ordered Filled Immunization Date Status Comments [facility] Immunization Name Name SARS-COV-2 COVID-19 2021-06-05 Completed Unive rsity of MODERNA VACCINE 00:00:00 [facility] [place] [facility] SARS-COV-2 COVID-19 2020-09-30 Completed Unive rsity of MODERNA VACCINE 00:00:00 [facility] [place] [facility] SARS-COV-2 COVID-19 2020-09-30 Completed Unive rsity of MODERNA VACCINE 00:00:00 [facility] SARS-COV-2 COVID-19 2020-09-30 Completed Unive rsity of MODERNA VACCINE 00:00:00 [facility] SARS-COV-2 COVID-19 2020-09-02 Completed Unive rsity of MODERNA VACCINE 00:00:00 [facility] SARS-COV-2 COVID-19 2020-09-02 Completed Unive rsity of MODERNA VACCINE 00:00:00 [facility] [place] [facility] SARS-COV-2 COVID-19 2020-09-02 Completed Unive rsity of MODERNA VACCINE 00:00:00 [facility] Vital Signs Vital Name Observation Time Observation Value Comments Source HEIGHT 2020-06-08 11:55:00 177.8 cm WEIGHT 2020-06-08 11:55:00 81.375 kg HEIGHT 2020-06-07 10:56:00 177.8 cm WEIGHT 2020-06-07 10:56:00 82.555 kg Systolic blood 2020-12-28 06:00:00 171 mm[Hg] Univer sity of pressure [facility] Diastolic blood 2020-12-28 06:00:00 82 mm[Hg] Unive rsity of pressure [facility] Heart rate 2020-12-28 06:00:00 68 /min [facility] Respiratory rate 2020-12-28 06:00:00 17 /min [facility] Oxygen saturation in 2020-12-28 06:00:00 99 /min [facility] Arterial blood by [facility] Pulse oximetry Branch Body temperature 2020-12-28 00:15:00 36.56 Ayah [facility] [place] Body height 2020-12-28 00:15:00 177.8 cm [facility] Body weight 2020-12-28 00:15:00 88.451 kg [facility] BMI 2020-12-28 00:15:00 27.98 kg/m2 [facility] Body height 2020-12-19 16:28:00 177.8 cm [facility] Systolic blood 2020-09-22 14:08:00 131 mm[Hg] [facility] Medicine Diastolic blood 2020-09-22 14:08:00 83 mm[Hg] [facility] Medicine Heart rate 2020-09-22 14:08:00 76 /min [facility] Body temperature 2020-09-22 14:08:00 36.22 Ayah [facility] Body height 2020-09-22 14:08:00 177.8 cm [facility] Body weight 2020-09-22 14:08:00 86.183 kg [facility] Medicine BMI 2020-09-22 14:08:00 27.26 kg/m2 [facility] HEIGHT 2020-06-08 11:55:00 177.8 cm WEIGHT 2020-06-08 11:55:00 81.375 kg HEIGHT 2020-06-07 10:56:00 177.8 cm WEIGHT 2020-06-07 10:56:00 82.555 kg Systolic blood 2020-05-25 16:01:00 144 mm[Hg] [facility] pressure Medicine Diastolic blood 2020-05-25 16:01:00 83 mm[Hg] [facility] Medicine Heart rate 2020-05-25 16:01:00 76 /min [facility] Body temperature 2020-05-25 16:01:00 36.67 Ayah [facility] Respiratory rate 2020-05-25 16:01:00 16 /min [facility] Body height 2020-05-25 16:01:00 177.8 cm [facility] Body weight 2020-05-25 16:01:00 84.369 kg [facility] BMI 2020-05-25 16:01:00 26.69 [facility] Sy[facility]olic blood 2020-05-17 14:54:00 128 mm[Hg] [facility] Medicine Diastolic blood 2020-05-17 14:54:00 77 mm[Hg] [facility] Medicine Heart rate 2020-05-17 14:54:00 74 /min [facility] Respiratory rate 2020-05-17 14:54:00 14 /min [facility] Body height 2020-05-17 14:54:00 177.8 cm [facility] Body weight 2020-05-17 14:54:00 84.823 kg [facility] BMI 2020-05-17 14:54:00 26.83 kg/m2 [facility] Systolic blood 2020-01-18 11:31:00 116 mm[Hg] Univer sity of pressure [place] [facility] Diastolic blood 2020-01-18 11:31:00 62 mm[Hg] Unive rsity of pressure [place] [facility] Weight 2020-01-18 11:31:00 189 [lb_av] [facility] [place] [facility] Body mass index 2020-01-18 11:31:00 27.12 kg/m2 Unive rsity of (BMI) [Ratio] [place] [facility] Heart Rate 2020-01-18 11:31:00 73 /min [facility] [place] [facility] Respiratory rate 2020-01-18 11:31:00 16 /min Univ [facility] [place] [facility] BP Systolic 2018-09-22 17:25:00 119 mm[Hg] [facility] [place] [facility] BP Diastolic 2018-09-22 17:25:00 75 mm[Hg] [facility] [place] [facility] Height 2018-09-22 17:25:00 70 [in_us] [facility] [place] [facility] Weight 2018-09-22 17:25:00 203 [lb_av] [facility] [place] [facility] Body Mass Index 2018-09-22 17:25:00 29.13 kg/m2 Unive rsity of Calculated [place] [facility] Temperature 2018-09-22 17:25:00 97 [degF] [facility] [place] [facility] Heart Rate 2018-09-22 17:25:00 90 /min [facility] [place] [facility] BP Systolic 2018-08-03 14:33:00 143 mm[Hg] [facility] [place] [facility] BP Diastolic 2018-08-03 14:33:00 88 mm[Hg] [facility] [place] [facility] Height 2018-08-03 14:33:00 70 [in_us] [facility] [place] [facility] Weight 2018-08-03 14:33:00 203 [lb_av] [facility] [place] [facility] Body Mass Index 2018-08-03 14:33:00 29.13 kg/m2 Unive rsity of Calculated [place] [facility] Heart Rate 2018-08-03 14:33:00 73 /min [facility] [place] [facility] Systolic (mm Hg) 2016-09-17 21:07:00 Asael neisha [facility] Diastolic (mm Hg) 2016-09-17 21:07:00 Mem orial [facility] Temperature Oral (F) 2016-09-17 21:07:00 97.2 F [facility] Systolic (mm Hg) 2016-09-17 18:19:00 Asael rial [facility] Diastolic (mm Hg) 2016-09-17 18:19:00 Mem orial [place] Systolic (mm Hg) 2016-09-17 18:16:00 Asael rial [place] Diastolic (mm Hg) 2016-09-17 18:16:00 Mem orial [place] Respitory Rate 2016-09-17 18:16:00 Memori al [place] Temperature Oral (F) 2016-09-17 18:16:00 98.4 F [facility] Heart Rate 2016-09-17 18:16:00 [facility] Weight 2016-09-17 18:16:00 [facility] [place] Height 2016-09-17 18:16:00 175.26 cm [facility] BMI Calculated 2016-09-17 18:16:00 Memori al [place] Systolic (mm Hg) 2014-04-27 20:37:00 Asael rial [place] Respitory Rate 2014-04-27 20:37:00 [facility] Diastolic (mm Hg) 2014-04-27 20:37:00 Mem orial [place] Weight 2014-04-27 20:37:00 [facility] BMI Calculated 2014-04-27 20:37:00 Memori al [place] Height 2014-04-27 20:37:00 175.26 cm [facility] [place] Weight 2011-07-26 16:31:00 [facility] Height 2011-07-26 16:31:00 175.26 cm [facility] [place] Systolic (mm Hg) 2011-07-26 16:31:00 Asael rial [place] Heart Rate 2011-07-26 16:31:00 [facility] Diastolic (mm Hg) 2011-07-26 16:31:00 Mem [facility] Respitory Rate 2011-07-26 16:31:00 [facility] Heart Rate 2011-07-24 02:53:00 [facility] Respitory Rate 2011-07-24 02:53:00 [facility] Diastolic (mm Hg) 2011-07-24 02:53:00 Mem [facility] Temperature Oral (F) 2011-07-24 02:53:00 99.4 F [facility] [place] Systolic (mm Hg) 2011-07-24 02:53:00 Asael rial [place] Temperature Oral (F) 2011-07-24 00:03:00 96.4 F [facility] [place] Respitory Rate 2011-07-24 00:03:00 Memori al [place] Weight 2011-07-24 00:03:00 [facility] [place] Height 2011-07-24 00:03:00 175.26 cm [facility] [place] Diastolic (mm Hg) 2011-07-24 00:03:00 Mem [facility] Systolic (mm Hg) 2011-07-24 00:03:00 Asael rial [place] Heart Rate 2011-07-24 00:03:00 [facility] [place] Heart Rate 2011-07-19 23:07:00 [facility] [place] Systolic (mm Hg) 2011-07-19 23:07:00 Asael rial [place] Respitory Rate 2011-07-19 23:07:00 [facility]ori [facility] Diastolic (mm Hg) 2011-07-19 23:07:00 Mem orial [place] Temperature Oral (F) 2011-07-19 23:07:00 97.9 F [facility] Temperature Oral (F) 2011-07-19 19:40:00 96.2 F [facility] Respitory Rate 2011-07-19 19:40:00 Memori al [place] Height 2011-07-19 19:40:00 175.26 cm [facility] Weight 2011-07-19 19:40:00 [facility] Systolic (mm Hg) 2011-07-19 19:40:00 Asael rial [facility] Diastolic (mm Hg) 2011-07-19 19:40:00 Mem [facility] Heart Rate 2011-07-19 19:40:00 [facility] Procedures Procedure Date / Time Performing Clinician Source Performed SARS-COV-2 COVID-19 2021-06-05 15:16:17 Doctor Unassigned, No [facility] [place] VACCINE,0.5ML,IM Name Medical Branch (MODERNA) CTA HEAD 2021-04-12 20:40:[address] [facility] AUTHORIZATION FOR 2021-01-30 05:01:00 Doctor Unassigned, No Univ ersity [facility] RELEASE OF PHI Name Medical Branch XR LUMBAR SPINE 3 VW 2020-12-28 04:12:11 Rashaad Herrera [facility] XR KNEE <3 VW LEFT 2020-12-28 04:12:11 Herrera, [facility] CT HEAD WO CONTRAST 2020-12-28 04:11:35 Rashaad Herrera [facility] COMP. METABOLIC PANEL 2020-12-28 02:38:00 Rashaad Herrera [facility] ([id number]) [facility] Branch CBC WITH DIFF 2020-12-28 02:38:00 Singer Rashaad [facility] (SCN) US/DOPPLER 2020-12-19 16:25:57 Crow [facility] of ABDOMEN/PELVIS Medicine [UTP] Neuro Biopsy - 2018-12-09 00:00:00 [facility] Skin Physicians [UTP] EMG 2018-12-01 00:00:00 [facility] Physicians Occupational Therapy 2018-07-15 00:00:00 [facility] Physicians EMG/NCS-Arm 2018-07-15 00:00:00 [facility] Physicians US Extremity upper 2018-06-11 00:00:00 [facility] limited non vasc [id number] Physician s [UTP] EMG 2017-09-17 00:00:00 [facility] Physicians CTA Abdomen/Pelvis [id number] 2017-05-07 00:00:00 [facility] Physicians CTA Chest [id number] 2017-05-07 00:00:00 [facility] 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 History of Brain Surgery [facility] Physicians History of Hysterectomy [facility] Physicians Plan of Care Planned Activity Planned Date Details Comments Source Future Scheduled 2021-03-27 TETANUS SHOT (ADULT) [facility] Test 14:20:42 [code = TETANUS SHOT of Medi cine (ADULT)] Future Scheduled 2021-03-27 BMI FOLLOW UP PLAN [facility] Test 14:20:42 [code = BMI FOLLOW UP of Med icine PLAN] Future Scheduled 2021-03-27 Human immunodeficiency B [facility] Test 14:20:42 virus screening of Medicine (procedure) [code = 954567127] Future Scheduled 2021-03-27 Screening for [facility] Test 14:20:42 malignant neoplasm of of Med icine cervix (procedure) [code = 154234011] Future Scheduled 2021-03-27 ZOSTER VACCINE (1 of [employer] Test 14:20:42 2) [code = ZOSTER of Medicin e VACCINE (1 of 2)] Future Scheduled 2021-03-27 Screening for [facility] Test 14:20:42 malignant neoplasm of of Med icine breast (procedure) [code = 154895672] Future Scheduled 2021-03-27 FLU VACCINE > 6 MONTHS [employer] Test 14:20:42 [code = FLU VACCINE > of Med icine 6 MONTHS] Future Scheduled 2021-03-27 Screening for [facility] Test 14:20:42 malignant neoplasm of of Med icine colon (procedure) [code = 872386793] Future Scheduled 2020-12-19 NM 4HR GASTRIC 1 Occurrences [facility] Test 12:18:49 EMPTYING SOLID [code = starting of Me dicine 45846] 12/19/2020 until 06/21/2022 Diagnostic Test 2020-05-172018 Expected: [facility] Pending 00:00:00 CORONAVIRUS(COVID-19), 05/17/2020, of Nv dicine ITZ [code = U0004] Expires: 11/15/2020 Diagnostic Test 2018-12-24 [UTP] EMG [code = Univers ity of Pending 00:00:00 [UTP] EMG] [place] [facility] Diagnostic Test 2018-12-15 [UTP] Neuro Biopsy - Univ ersity of Pending 00:00:00 Skin [code = [UTP] [place] [facility] Neuro Biopsy - Skin] Diagnostic Test 2017-09-25 [UTP] EMG [code = Univers ity of Pending 00:00:00 [UTP] EMG] [place] [facility] Future Scheduled [facility]RAIN w/[facility]AST [facility] Test 08/02/2011 RoutineMultiple sleep latency or maintenance of wakefulness, testing, recording, analysis and interpretation of physiological measurements of sleep during mulitple trials to assess sleepiness 10/23/2011 Routine [code = MRI BRAIN w/o CONTRAST 08/02/2011 RoutineMultiple sleep latency or maintenance of wakefulness, testing, recording, analysis and interpretation of physiological measurements of sleep during mulitple trials to assess sleepiness 10/23/2011 Routine] Future Scheduled [facility] BRAIN w/o CONTRAST [facility] Test 08/02/2011 RoutineMultiple sleep latency or maintenance of wakefulness, testing, recording, analysis and interpretation of physiological measurements of sleep during mulitple trials to assess sleepiness 10/23/2011 Routine [code = MRI BRAIN w/o CONTRAST 08/02/2011 RoutineMultiple sleep latency or maintenance of wakefulness, testing, recording, analysis and interpretation of physiological measurements of sleep during mulitple trials to assess sleepiness 10/23/2011 Routine] Future Scheduled MRI BRAIN w/o CONTRAST [facility] [place] Test 08/02/2011 RoutineMultiple sleep latency or maintenance of wakefulness, testing, recording, analysis and interpretation of physiological measurements of sleep during mulitple trials to assess sleepiness 10/23/2011 Routine [code = MRI BRAIN w/o CONTRAST 08/02/2011 RoutineMultiple sleep latency or maintenance of wakefulness, testing, recording, analysis and interpretation of physiological measurements of sleep during mulitple trials to assess sleepiness 10/23/2011 Routine] Future Scheduled MRI BRAIN w/o CONTRAST [facility] [place] Test 08/02/2011 RoutineMultiple sleep latency or maintenance of wakefulness, testing, recording, analysis and interpretation of physiological measurements of sleep during mulitple trials to assess sleepiness 10/23/2011 Routine [code = MRI BRAIN w/o CONTRAST 08/02/2011 RoutineMultiple sleep latency or maintenance of wakefulness, testing, recording, analysis and interpretation of physiological measurements of sleep during mulitple trials to assess sleepiness 10/23/2011 Routine] Future Scheduled [facility] BRAIN w/o CONTRAST [facility] Test 08/02/2011 RoutineMultiple sleep latency or maintenance of wakefulness, testing, recording, analysis and interpretation of physiological measurements of sleep during mulitple trials to assess sleepiness 10/23/2011 Routine [code = MRI BRAIN w/o CONTRAST 08/02/2011 RoutineMultiple sleep latency or maintenance of wakefulness, testing, recording, analysis and interpretation of physiological measurements of sleep during mulitple trials to assess sleepiness 10/23/2011 Routine] Future Scheduled MRI BRAIN w/o CONTRAST [facility] [place] Test 08/02/2011 RoutineMultiple sleep latency or maintenance of wakefulness, testing, recording, analysis and interpretation of physiological measurements of sleep during mulitple trials to assess sleepiness 10/23/2011 Routine [code = MRI BRAIN w/o CONTRAST 08/02/2011 RoutineMultiple sleep latency or maintenance of wakefulness, testing, recording, analysis and interpretation of physiological measurements of sleep during mulitple trials to assess sleepiness 10/23/2011 Routine] Future Scheduled MRI BRAIN w/o CONTRAST [facility] [place] Test 08/02/2011 RoutineMultiple sleep latency or maintenance of wakefulness, testing, recording, analysis and interpretation of physiological measurements of sleep during mulitple trials to assess sleepiness 10/23/2011 Routine [code = MRI BRAIN w/o CONTRAST 08/02/2011 RoutineMultiple sleep latency or maintenance of wakefulness, testing, recording, analysis and interpretation of physiological measurements of sleep during mulitple trials to assess sleepiness 10/23/2011 Routine] Future Scheduled MRI BRAIN w/o CONTRAST [facility] [place] Test 08/02/2011 RoutineMultiple sleep latency or maintenance of wakefulness, testing, recording, analysis and interpretation of physiological measurements of sleep during mulitple trials to assess sleepiness 10/23/2011 Routine [code = MRI BRAIN w/o CONTRAST 08/02/2011 RoutineMultiple sleep latency or maintenance of wakefulness, testing, recording, analysis and interpretation of physiological measurements of sleep during mulitple trials to assess sleepiness 10/23/2011 Routine] Future Scheduled MRI BRAIN w/o CONTRAST [facility] Test 08/02/2011 RoutineMultiple sleep latency or maintenance of wakefulness, testing, recording, analysis and interpretation of physiological measurements of sleep during mulitple trials to assess sleepiness 10/23/2011 Routine [code = MRI BRAIN w/o CONTRAST 08/02/2011 RoutineMultiple sleep latency or maintenance of wakefulness, testing, recording, analysis and interpretation of physiological measurements of sleep during mulitple trials to assess sleepiness 10/23/2011 Routine] Future Scheduled MRI BRAIN w/o CONTRAST [facility] Test 08/02/2011 RoutineMultiple sleep latency or maintenance of wakefulness, testing, recording, analysis and interpretation of physiological measurements of sleep during mulitple trials to assess sleepiness 10/23/2011 Routine [code = MRI BRAIN w/o CONTRAST 08/02/2011 RoutineMultiple sleep latency or maintenance of wakefulness, testing, recording, analysis and interpretation of physiological measurements of sleep during mulitple trials to assess sleepiness 10/23/2011 Routine] Future Scheduled MRI BRAIN w/o CONTRAST [facility] Test 08/02/2011 RoutineMultiple sleep latency or maintenance of wakefulness, testing, recording, analysis and interpretation of physiological measurements of sleep during mulitple trials to assess sleepiness 10/23/2011 Routine [code = MRI BRAIN w/o CONTRAST 08/02/2011 RoutineMultiple sleep latency or maintenance of wakefulness, testing, recording, analysis and interpretation of physiological measurements of sleep during mulitple trials to assess sleepiness 10/23/2011 Routine] Future Scheduled MRI BRAIN w/o CONTRAST [facility] [place] Test 08/02/2011 RoutineMultiple sleep latency or maintenance of wakefulness, testing, recording, analysis and interpretation of physiological measurements of sleep during mulitple trials to assess sleepiness 10/23/2011 Routine [code = MRI BRAIN w/o CONTRAST 08/02/2011 RoutineMultiple sleep latency or maintenance of wakefulness, testing, recording, analysis and interpretation of physiological measurements of sleep during mulitple trials to assess sleepiness 10/23/2011 Routine] Future Scheduled MRI BRAIN w/o CONTRAST [facility] [place] Test 08/02/2011 RoutineMultiple sleep latency or maintenance of wakefulness, testing, recording, analysis and interpretation of physiological measurements of sleep during mulitple trials to assess sleepiness 10/23/2011 Routine [code = MRI BRAIN w/o CONTRAST 08/02/2011 RoutineMultiple sleep latency or maintenance of wakefulness, testing, recording, analysis and interpretation of physiological measurements of sleep during mulitple trials to assess sleepiness 10/23/2011 Routine] Future Scheduled MRI BRAIN w/o CONTRAST [facility] [place] Test 08/02/2011 RoutineMultiple sleep latency or maintenance of wakefulness, testing, recording, analysis and interpretation of physiological measurements of sleep during mulitple trials to assess sleepiness 10/23/2011 Routine [code = MRI BRAIN w/o CONTRAST 08/02/2011 RoutineMultiple sleep latency or maintenance of wakefulness, testing, recording, analysis and interpretation of physiological measurements of sleep during mulitple trials to assess sleepiness 10/23/2011 Routine] Future Scheduled MRI BRAIN w/o CONTRAST [facility] [place] Test 08/02/2011 RoutineMultiple sleep latency or maintenance of wakefulness, testing, recording, analysis and interpretation of physiological measurements of sleep during mulitple trials to assess sleepiness 10/23/2011 Routine [code = MRI BRAIN w/o CONTRAST 08/02/2011 RoutineMultiple sleep latency or maintenance of wakefulness, testing, recording, analysis and interpretation of physiological measurements of sleep during mulitple trials to assess sleepiness 10/23/2011 Routine] Future Scheduled MRI BRAIN w/o CONTRAST [facility] Test 08/02/2011 RoutineMultiple sleep latency or maintenance of wakefulness, testing, recording, analysis and interpretation of physiological measurements of sleep during mulitple trials to assess sleepiness 10/23/2011 Routine [code = MRI BRAIN w/o CONTRAST 08/02/2011 RoutineMultiple sleep latency or maintenance of wakefulness, testing, recording, analysis and interpretation of physiological measurements of sleep during mulitple trials to assess sleepiness 10/23/2011 Routine] Future Scheduled COVID-19 Vaccine [facility] Test Evaluation [code = of Medici ne COVID-19 Vaccine Evaluation] Future Scheduled TETANUS SHOT (ADULT) [employer] Test [code = TETANUS SHOT of Medi cine (ADULT)] Future Scheduled BMI FOLLOW UP PLAN [employer] Test [code = BMI FOLLOW UP of Med icine PLAN] Future Scheduled HIV SCREENING [code = [employer] Test HIV SCREENING] of Medicine Future Scheduled CERVICAL CANCER [facility] Test SCREENING 3 YEAR of Medicine FOLLOW UP [code = CERVICAL CANCER SCREENING 3 YEAR FOLLOW UP] Future Scheduled ZOSTER VACCINE (1 of [employer] Test 2) [code = ZOSTER of Medicin e VACCINE (1 of 2)] Future Scheduled MAMMOGRAM ANNUAL [code [facility] Test = MAMMOGRAM ANNUAL] of Medic ine Future Scheduled FLU VACCINE > 6 MONTHS [employer] Test [code = FLU VACCINE > of Med icine 6 MONTHS] Future Scheduled COLON CANCER [facility] Test SCREENING: COLONOSCOPY of Me dicine [code = COLON CANCER SCREENING: COLONOSCOPY] Future Scheduled TETANUS SHOT (ADULT) [employer] Test [code = TETANUS SHOT of Medi cine (ADULT)] Future Scheduled BMI FOLLOW UP PLAN [employer] Test [code = BMI FOLLOW UP of Med icine PLAN] Future Scheduled HIV SCREENING [code = [employer] [facility] HIV SCREENING] of Medicine Future Scheduled CERVICAL CANCER [facility] Test SCREENING 3 YEAR of Medicine FOLLOW UP [code = CERVICAL CANCER SCREENING 3 YEAR FOLLOW UP] Future Scheduled ZOSTER VACCINE (1 of [employer] Test 2) [code = ZOSTER of Medicin e VACCINE (1 of 2)] Future Scheduled MAMMOGRAM ANNUAL [code [facility] [employer] Test = MAMMOGRAM ANNUAL] of Medic ine Future Scheduled FLU VACCINE > 6 MONTHS [employer] Test [code = FLU VACCINE > of Med icine 6 MONTHS] Future Scheduled COLON CANCER [facility] Test SCREENING: COLONOSCOPY of Me dicine [code = COLON CANCER SCREENING: COLONOSCOPY] Future Scheduled TETANUS SHOT (ADULT) [employer] Test [code = TETANUS SHOT of Medi cine (ADULT)] Future Scheduled BMI FOLLOW UP PLAN [employer] Test [code = BMI FOLLOW UP of Med icine PLAN] Future Scheduled HIV SCREENING [code = [employer] HIV SCREENING] of Medicine Future Scheduled CERVICAL [facility]CER [facility] [employer] Test SCREENING 3 YEAR of Medicine FOLLOW UP [code = CERVICAL CANCER SCREENING 3 YEAR FOLLOW UP] Future Scheduled ZOSTER VACCINE (1 of [employer] Test 2) [code = ZOSTER of Medicin e VACCINE (1 of 2)] Future Scheduled MAMMOGRAM ANNUAL [code [employer] = MAMMOGRAM ANNUAL] of Medic ine Future Scheduled FLU VACCINE > 6 MONTHS [employer] Test [code = FLU VACCINE > of Med icine 6 MONTHS] Future Scheduled COLON CANCER [facility] [employer] Test SCREENING: COLONOSCOPY of Me dicine [code = COLON CANCER SCREENING: COLONOSCOPY] Future Scheduled EGD W/MAC - GI DEPT 1 Occurrences [employer] Test [code = 78409] starting of Medicine 05/17/2020 until 11/15/2020 Future Scheduled COLONOSCOPY W MAC GI 1 Occurrences [employer] Test DEPT [code = 97532] starting of Medic ine 05/17/2020 until 11/15/2020 Encounters Start End Encounter Admission Attending Care Care Encounter Source Date/Time Date/Time Type Type Clinicians Facility Department ID 2021-07-07 Outpatient RUPAL GOLDSMITH [id number] [facility] 01:05:33 04 socorro Viera 2021-07-07 OD RUPAL GOLDSMITH [id number] Me moria 01:05:33 01 socorro Viera 2021-05-05 Outpatient FERGUSON-VENECIA [facility] Surgery [id number] [facility] 03:22:06 LVERO 2021-05-03 Outpatient MARTY-VENECIA [facility] Surgery [id number] SLE 09:51:28 VERO Prabhakar 2021-05-02 Outpatient SHEIKH [facility] Surgery [id number] [facility] 11:46:47 EL 2021-08-13 2021-08-13 Outpatient FREDDIE [facility] [id number] 00:00:00 00:00:00 HERB 273 Method i 2021-06-05 2021-06-05 Imm/Inj Nurse, Adc Pob Immunization [place] 1.2.840.114 [id number] [facility] 08:13:16 08:13:42 Visit Jimi Stacy 350.1.13 .10 it[place] [id number] Nv dical NAL 421 [facility] 2021-04-12 2021-04-12 EXT [facility] OP Way, EXT MSRDP 1.2.840.114 1 [id number] [place] 00:00:00 00:00:00 [facility] 350.1.13.58 [facility] 9.2.7.2.686 [id number] 2021-03-07 2021-03-07 Outpatient ERGUN, [facility] [id number] 00:00:00 00:00:00 GUPHYLLISN 178 Method i 2021-03-05 2021-03-05 [facility] [id number] 00:00:00 00:00:00 DAVION 851 Method i 2021-01-30 2021-01-30 Orders Doctor LINETTE 1.2.840.114 [id number] [facility] 00:00:00 00:00:00 Only Unassigned, TORO 350.1.13.10 ity of [place] [facility] 4.2.7.2.686 Leonid as [id number] [address] 2021-01-18 2021-01-18 [facility]patient [facility] [id number] 00:00:00 00:00:00 DAVION 169 Method i 2021-01-02 2021-01-02 [facility]patient [facility] [id number] 00:00:00 00:00:00 DAVION 088 Method i 2020-12-27 2020-12-28 Emergency , [facility] [id number] [id number] [facility] 19:08:00 01:09:00 Rashaad Nolan 350.1.13.10 i [place] of [place] [id number] [facility] david [address] 2020-12-27 2020-12-27 Emergency X , [facility] ERT [id number] Univers 19:08:00 19:08:00 RASHAAD chapman [facility] 2020-12-19 2020-12-20 Office DIANE Leija 1.2.840.114 [id number] [facility] 11:25:57 08:26:16 Visit Crow AMBULATOR 350.1.13.21 College Y 0.2.7.2.686 of [id number] [facility] rose 325 e 2020-09-22 2020-09-22 Office DIANE Castellon 1.2.840.114 [id number] [facility] 08:01:45 08:31:45 Visit El Ali AMBULATOR 350.1.13.21 College Y 0.2.7.2.686 of [id number] [facility] rose 325 e 2020-06-07 2020-06-07 Outpatient EL [facility] [id number] [facility] 00:00:00 00:00:00 2020-06-07 2020-06-07 Outpatient EL [facility]H [facility] [id number] [facility] 00:00:00 00:00:00 2020-05-25 2020-05-25 Office Leena [facility] 1.2.840.114 [id number] [facility] 10:36:36 12:56:21 Visit socorro Vero Steve 350.1.13.21 College 0.2.7.2.686 of [id number] [facility] rose 510 e 2020-05-17 2020-05-17 Office DIANE Castellon 1.2.840.114 [id number] [facility] 09:45:16 16:44:34 Visit El Ali AMBULATOR 350.1.13.21 College Y 0.2.7.2.686 of [id number] [facility] rose 325 e 2020-01-18 2020-01-18 Appointmen JAI DUMONT - [id number] [facility] 11:00:00 11:00:00 gaby LEWIS M.D. [facility] Luly DUMONT M.D. [facility] 2018-12-22 2018-12-22 [facility] [id number] Univers 11:30:00 11:30:00 t; [facility] 2018-12-09 2018-12-09 [facility] [id number] Univers 13:00:00 13:00:00 t; [place] Kathleen LEWIS Physi ans 2018-09-22 2018-09-22 [facility]oped[facility] 5 [id number] Univers 15:20:00 15:20:00 t; Kathleen LINDQUIST at [place], [place] Erik LINDQUIST M.D. ans 2018-08-31 2018-08-31 Appointmen [facility] [id number] Univers 12:00:00 12:00:00 t; Kathleen DUVAL CARTER [facility] Erik DUVAL M.D. ans 2018-08-10 2018-08-10 Appointmen POP [facility] [id number] Univers 10:15:00 10:15:00 t; , [place] SMITH D.OErik Muhammad ans D.OJamil 2018-07-31 2018-07-31 Appointmen SUE [facility] [id number] Univers 15:30:00 15:30:00 t; [place]IST [place] Erik LINDQUIST M.D. ans 2018-07-15 2018-07-15 [facility] Orthopedics [id number] Univers 09:30:00 09:30:00 t; , [place] SMITH D.OErik Muhammad ans D.OJamil 2018-06-11 2018-06-11 [facility] [id number] Univers 10:30:00 10:30:00 t; Kathleen LEWIS of [place] DUMONT M.D. Physi ci ans 2018-03-09 2018-03-09 [facility] [id number] [place] [address] 11:30:00 11:30:00 03 socorro Viera 2017-09-25 2017-09-25 Appointmen TIM, [facility] [id number] Univers 14:30:00 14:30:00 t; Kathleen LEWIS itjoi [facility] [place]indo LEWIS M.D. Physi ci ans 2017-09-08 2017-09-08 Outpatient MHIE MHIE [id number] [facility] 16:00:00 16:00:00 02 l [place] 2017-07-14 2017-07-14 Appointmen ARIANA, [facility] [id number] Univers 11:45:00 11:45:00 t; [address] [facility] Physic ans 2017-05-20 2017-05-20 Appointmen BERENICE [facility] [id number] Univers 15:30:00 15:30:00 t; TRACY NG Multi ity of SHEILA, [facility]. [facility] 2017-05-14 2017-05-14 Appointmen ARIANA, [facility] [id number] Univers 16:30:00 16:30:00 t; [address] [facility] Physic ans 2017-05-14 2017-05-14 Appointmen VASCULAR, [facility] UTP [id number] Univers 14:00:00 14:00:00 t; ISABEL chapman o f VASCULAR, [facility] Physic ans 2017-05-07 2017-05-08 Outpt Diag nullFlavo [facility] [id number] Memoria 19:08:00 04:59:00 Services r Outpatient 10 l Imaging Maximiliano [place] 2017-04-30 2017-04-30 Appointmen BERENICE, [facility] UTP [id number] Univers 08:30:00 08:30:00 t; TRACY NG ity of SHEILA, M.D. [place] Kathleen Physic ans 2017-02-28 2017-03-01 Outpt Diag nullFlavo [facility] [id number] Memoria 18:07:00 04:59:00 Services r Outpatient 09 l Imaging Maximiliano Montañoann 2016-10-21 2016-10-21 Outpatient MHIE MHIE [id number] [facility] 10:00:00 10:00:00 01 socorro Viera 2016-09-17 2016-09-17 Emergency nullFlavo [facility] [id number] Memoria 18:10:00 21:43:00 r [place] 08 [facility] 2016-02-16 2016-02-17 Outpt Diag nullFlavo [facility] [id number] Memoria 16:53:00 04:59:00 Services r Outpatient 08 l [facility] 2016-01-22 2016-01-22 Outpatient [facility] [id number] [facility] 12:30:00 12:30:00 00 [facility] 2015-01-09 2015-01-10 Outpt Diag nullFlavo [facility] [id number] Memoria 18:45:00 04:59:00 Services r Outpatient 07 l [facility] 2014-06-06 2014-06-06 Bedded nullFlavo [facility] [id number] [facility] 17:27:00 20:00:00 Outpatient r [place] 07 [facility] 2014-04-27 2014-04-28 Outpatient [facility] [id number] Mem[facility] 20:16:00 04:59:00 r [place] 05 [facility] 2014-04-19 2014-04-20 Outpt Diag nullFlavo [facility] [id number] Memoria 21:41:00 04:59:00 Services r Outpatient 06 l [facility] 2014-02-10 2014-02-11 Outpt Diag nullFlavo [facility] [id number] Memoria 19:39:00 04:59:00 Services r Outpatient 05 l [facility] 2011-07-23 2011-07-23 Emergency nullFlavo [facility] [id number] Mem[facility] 18:00:00 20:55:00 r Medical 03 [facility] 2011-07-19 2011-07-19 Emergency nullFlavo [facility] [id number] Memoria 13:40:00 18:30:00 r Medical [facility] Results Test Description Test Time Test Comments Results Result Comments Source SARS-CoV-2 (COVID-19) RNA [Presence] in Respiratory sp ecimen by 2021-08-13 21:41:49 ITZ with probe detection Test Item Value Reference Range Interpretation Comme nts SARS-CoV-2 (COVID-19) RNA [Presence] in Respiratory Not detected No t-Detected specimen by ITZ with probe detection (test code = 15393-7) Whether patient is employed in a healthcare setting (test code = 42468-7) Whether the patient has symptoms related to condition of interest (test code = 38307-2) Patient was hospitalized because of this condition (test code = 35081-3) Whether the patient was admitted to intensive care unit (ICU) for condition of interest (test code = 46341-8) Whether patient resides in a congregate care setting (test code = 24679-6) SARS-CoV-2 (COVID-19) RNA [Presence] in Respiratory specimen by ITZ with probe [id number] 17:47:17 Test Item Value Reference Range Interpretation Comments SARS-CoV-2 (COVID-19) RNA Not detected Not-Detected [Presence] in Respiratory specimen by ITZ with probe detection (test code = 03404-2) Whether patient is employed in a healthcare setting (test code = 68054-7) Whether the patient has symptoms related to condition of interest (test code = 73026-4) Patient was hospitalized because of this condition (test code = 22001-8) Whether the patient was admitted to intensive care unit (ICU) for condition of interest (test code = 97566-7) Whether patient resides in a congregate care setting (test code = 49919-9) XR LUMBAR SPINE 3 [id number] 05:08:351. No evidence for acute fracture.2. Degenerative facet arthropathy at the L3-4 through L5-S1 levels. RL 1337End of Report ORDERING PHYSICIAN: RASHAAD HERRERA HISTORY: ?Status post fall, pain TECHNIQUE: Lumbar ?spine x-ray, 2 views COMPARISON EXAMINATIONS: none available FINDINGS: The vertebral bodies demonstrate normal height and alignmentwithout evidence for fracture. ? Disc spaces appear preserved. Facet arthropathy is noted at the L3- 4, L4-5 and L5-S1 levels. Minimal aortic calcifications are noted. [facility], Radiant Results Inft User - 12/28/2020 12:33 AM CDT ORDERING PHYSICIAN:RASHAAD HERRERAHISTORY: Status post fall, painTECHNIQUE: Lumbar spine x-ray, 2 viewsCOMPARISON EXAMI NATIONS: none availableFINDINGS: The vertebral bodies demonstrate normal height and alignmentwithoutevidence for fracture. Disc spaces appear preserved. Facet arthropathy is noted at the L3-4, L4-5 and L5-S1 levels. Minimal aortic calcifications are noted. IMPRESSION1. No evidence for acute fracture.2. Degenerative facet arthropathy at the L3-4 through L5-S1 levels.RL 1337End of Report [facility]3 VW [id number] 05:06:311. Normal left knee series. [id number] End of Report ORDERING PHYSICIAN: RASHAAD HERRERA HISTORY: ?Status post fall, pain TECHNIQUE: Left knee x-ray, ?2 views COMPARISON EXAMINATIONS: none available FINDINGS: The bones demonstrate no evidence for acute fracture ordislocation. ?No evidence for joint effusion. No abnormal calcificationsare noted. Joint spaces appear preserved. [facility], Radiant Results Inft User - 12/28/2020 12:33 AM CDT ORDERING PHYSICIAN: RASHAAD HERRERAHISTORY: Status postfall, painTECHNIQUE: Left knee x- ray, 2 viewsCOMPARISON EXAMINATIONS: none availableFINDINGS: The bones demonstrate no evidence for acute fracture ordislocation. No evidence for joint effusion. No abnormal calcificationsare noted. Joint spaces appear preserved. IMPRESSION1. Normal left knee series. [id number] of Report [facility] WO [id number] 04:33:44 No acute intracranial hemorrhage. Preliminary Report Dictated by Resident: Alba Damian MD., have reviewed this study and agree with theabove report.CT HEAD WO CONTRAST HISTORY: Headache, new or worsening, post traumatic (Age 19-49y) fall, hxof aneurysm. headache. COMPARISON: None TECHNIQUE: ?Noncontrast CT imaging of the head was performed and coronaland sagittal reconstructions were obtained and reviewed. FINDINGS: Changes of prior left frontotemporal craniotomy. Ananeurysm clip is notedin the left supraclinoid region. The ventricles and cerebral sulci are normal in caliber and configuration.No hydrocephalus, midline shift or pathological extra-axial fluidcollection is present. The basal cisterns are unremarkable. There is no acute intracranial hemorrhage or significant mass effect. Noparenchymal attenuation abnormality. The cruz-white matter differentiationis preserved. The mastoid air cells and paranasal air sinuses are clear. The calvariumand central skull base are unremarkable. [facility], Radiant Results Inft User - 12/27/2020 11:[address] HEAD WO CONTRASTHISTORY: Headache, new or worsening, post traumatic (Age 19-49y) fall, hxof aneurysm. headache. COMPARISON: NoneTECHNIQUE: Noncontrast CT imaging of the head was performed and coronaland sagittal reconstructions were obtained and reviewed.FINDINGS:Changes of prior left frontotemporal craniotomy. An aneurysm clip is notedin the left supraclinoid region.The ventricles and cerebral sulci are normal in caliber and configuration.No hydrocephalus,midline shift or pathological extra-axial fluidcollection is present. The basal cisterns are unremarkable.There is no acute intracranial hemorrhage or significant mass effect. Noparenchymal attenuationabnormality. The cruz-white matter differentiationis preserved.The mastoid air cells and paranasal air sinuses are clear. The calvariumand central skull base are unremarkable.IMPRESSIONNo acute intracranial hemorrhage. Preliminary Report Dictated by Resident: Alba Prakash MD., have reviewed this study and agree with theabove report. [facility] WITH [id number] 03:32:19 Test Item Value Reference Range Interpretation Comments WBC (test code = See_Comment [Automated message] 6690-2) The system [employer] generated this result transmitted ref erence range: 4.30 - 1 1.10 10*3/?L. The re ference range was not u sed to interpret this result as normal/abnor mal. RBC (test code = See_Comment [Automated message] 789-8) The system [employer] generated this result transmitted ref erence range: 3.93 - 5 .25 10*6/?L. The re ference range was not u sed to interpret this result as normal/abnor mal. HGB (test code = 12.3 g/dL 11.6-15.0 718-7) HCT (test code = 38.9 % 35.7-45.2 4544-3) MCV (test code = 84.9 fL 80.6-95.5 787-2) MCH (test code = 26.9 pg 25.9-32.8 785-6) MCHC (test code = 31.6 g/dL 31.6-35.1 786-4) RDW-SD (test code 42.3 fL 39.0-49.9 = 00528-3) RDW-CV (test code 13.7 % 12.0-15.5 = 788-0) PLT (test code = See_Comment [Automated message] 777-3) The system [employer] generated this result transmitted ref erence range: 166 - 35 8 10*3/?L. The re ference range was not u sed to interpret this result as normal/abnor mal. MPV (test code = 10.4 fL 9.5-12.9 68684-3) NRBC/100 WBC (test See_Comment [Automat ed message] code = 9669018587) The syste m which generated this result transmitted ref erence range: 0.0 - 10 .0 /100 WBCs. The refer ence range was not u sed to interpret this result as normal/abnor mal. NRBC x10^3 (test <0.01 See_Comment [Automated message] code = 0649980922) The syste m which generated this result transmitted ref erence range: 10*3/?L. The reference range was not used to interpr et this result as normal/abnormal . GRAN MAT (NEUT) % 42.6 % (test code = 770-8) IMM GRAN % (test 0.20 % code = 8861345398) LYMPH % (test code 44.6 % = 736-9) MONO % (test code 8.9 % = 5905-5) EOS % (test code = 2.8 % 713-8) BASO % (test code 0.9 % = 706-2) GRAN MAT 2.24 10*3/uL 1.88-7.09 x10^3(ANC) (test code = 3954604137) IMM GRAN x10^3 <0.03 0.00-0.06 (test code = 4525189947) LYMPH x10^3 (test 2.35 10*3/uL 1.32-3.29 code = 731-0) MONO x10^3 (test 0.47 10*3/uL 0.33-0.92 code = 742-7) EOS x10^3 (test 0.15 10*3/uL 0.03-0.39 code = 711-2) BASO x10^3 (test 0.05 10*3/uL 0.01-0.07 code = 704-7) [facility]OL[facility] PAN[facility] ([id number])2020-12-28 03:28:19 Test Item Value Reference Range Interpretation Comments NA (test code = 138 mmol/L 135-145 3146542633) K (test code = 3.8 mmol/L 3.5-5.0 0209524554) CL (test code = 104 mmol/L 98-108 6405872443) CO2 TOTAL (test code 28 mmol/L 23-31 = 3067512633) AGAP (test code = 2-16 0852803783) BUN (test code = 14 mg/dL 7-23 8179299381) GLUCOSE (test code = 84 mg/dL 70-110 0162020375) CREATININE (test code 0.59 mg/dL 0.50-1.04 = 2450520848) TOTAL BILI (test code 0.7 mg/dL 0.1-1.1 = 2548429429) CALCIUM (test code = 9.4 mg/dL 8.6-10.6 7407927859) T PROTEIN (test code 7.5 g/dL 6.3-8.2 = 7077718101) ALBUMIN (test code = 4.0 g/dL 3.5-5.0 9855081425) ALK PHOS (test code = 121 U/L 34-122 4625971835) ALTv (test code = 20 U/L 5-35 1742-6) AST(SGOT) (test code 29 U/L 13-40 = 2397085301) eGFR (test code = mL/min/1.73m2 8575243559) INGRIS (test code = INGRIS) Association of Glomerular Filtration Rate (GFR) and Staging of Kidney Disease* + + +- +| GFR (mL/min/1.73 m2) ?| With Kidney Damage ?| ?Without Kidney Damage+ ------+ ----+ ------+| ?>90 ?| ?Stage one ?| ? Normal ?+ -+ + -+| ?60-89 ?| ?Stage two ?| ? Decreased GFR ? + + +- +| ?30-59 ?| ?Stage three ?| ? Stage three ? + + +- +| ?15-29 ?| ?Stage four ? | ? Stage four ?+ -+ + -+| ?<15 (or dialysis) ? ?| ?Stage five ? | ? Stage five ?+ -+ + -+ *Each stage assumes the associated GFR level has been in effect for at least three months. ?Stages 1 to 5, with or without kidney disease, indicate chronic kidney disease. Notes: Determination of stages one and two (with eGFR >59mL/min/1.73 m2) requires estimation of kidney damage for at least three months as defined by structural or functional abnormalities of the kidney, manifested by either:Pathological abnormalities or Markers of kidney damage (including abnormalities in the composition of the blood or urine or abnormalities in imaging tests). [facility] [id number] 16:37:00Surgical Pathology Report Case: [id number] Authorizing Provider: El Castellon MD Collected: 06/08/2020 03:17 PM Ordering Location: [facility] Endoscopy Received: 06/09/2020 08:45 AM Services Pathologist: Darwin Bridges MD Specimens: A) - Biopsy, Gastric, Random B) -Biopsy, Gastroesophageal Junction C) - Proximal Esophagus, BX D) - Polyp, Colon - Left/Descending, Removed by Cold Snare A. STOMACH, RANDOM BIOPSIES: - ANTRAL MUCOSA WITH REACTIVE GASTROPATHY - OXYNTIC MUCOSA WITH NO SIGNIFICANT DIAGNOSTIC ABNORMALITY - NEGATIVE FOR HELICOBACTER PYLORI ORGANISMS BY WARTHIN STARRY STAIN - NEGATIVE FOR INTESTINAL METAPLASIA, DYSPLASIA, MALIGNANCYB. GASTROESOPHAGEAL JUNCTION, BIOPSY: - JUNCTIONAL MUCOSA WITH NOSIGNIFICANT DIAGNOSTIC ABNORMALITY - NEGATIVE FOR INTESTINAL METAPLASIA/ RYAN'S ESOPHAGUS - NEGATIVE FOR DYSPLASIA/ MALIGNANCYC. ESOPHAGUS, PROXIMAL, BIOPSY: - UNREMARKABLE SQUAMOUS EPITHELIUM -NEGATIVE FOR DYSPLASIA/ MALIGNANCY D. COLON, LEFT/DESCENDING POLYP, BIOPSY: - TUBULAR ADENOMA Signing Pathologist Direct Phone Line: [phone] signed by Darwin Bridges MD on 06/12/2020 at 4:37 [id number] cancer screening, gastroesophageal reflux disease without esophagitis, Ryan's esophagus without dysplasiaA. Biopsy, gastricB. Biopsy, gastroesophageal junctionC. Proximal esophagusD. Polyp, colon-left/descending A. Received in formalin labeled with the patient's name, medical record number and "biopsy, gastric" and consists of multiple rojas soft tissue fragments ranging 0.2-0.4 cm submitted in toto in A1.B. Received in formalin labeled with the patient's name, medical record number and "biopsy, gastroesophageal junction" and consists of 2 white soft tissue fragments each measuring 0.2 cm submitted in toto in B1.C. Received in formalin labelled with the patient's name, medical record number and "proximal esophagus" and consists of 2 white soft tissuefragments each measuring 0.2 cm submitted in toto in C1.D. Received in formalin labelled with the patient's name,medical record number and "polyp, colon-left/descending" and consists of a 0.2 cm rojas polyp submitted in toto in D1.NATALYA Santos PA (ASCP)cmPerformed.The interpretation of this case included the use of immunohistochemistry or special stains.Control Slides Examined: In-house known positive controls were evaluated along with the test tissue. These control slides run alongside of the patients sample show appropriate staining. Internal positive and negative controls when available are evaluated Immunohistochemistry technical testing was performed at [facility], Pathology Laboratory where it was developed and its performance characteristics were determined. Ithas not been cleared or approved by the U.S. Food and Drug Administration. The FDA has determined that such clearance or approval is not necessary. The test is used for clinical purposes. It should notbe regarded as investigational or for research. This laboratory is certified under the Clinical Laboratory Improvement Amendments of 1988 (CLIA-88) as qualified to perform high complexity clinical laboratory testing.[U] XRAY SPINE LUMBOSACRAL MIN 4 VWS [id number] 16:56:00 Test Item Value Reference Range Interpretation Comments XR SPINE LUMBOSACRAL EXAM: XR SPINE MIN 4 VWS (test code = LUMBOSACRAL MIN 4 VWS 68232-1) DATE: 07/31/2018 5:18 PM SMALL ENGINE MECHANIC INDICATION: back pain COMPARISON: None available TECHNIQUE: AP, lateral, coned lateral, LPO and RPO radiographs of the lumbar spine FINDINGS: 5 nonrib bearing, lumbar-type vertebral bodies are present. Mild levocurvature of the lumbar spine.Vertebral body heights and disc heights are maintained. Minimal osteophytes are present at L2-L4. Zduv-ad-tbjqbtdw facet arthrosis seen in the lower lumbar spine.The alignment is preserved. No evidence of pars defect.Mild bilateral SI joint degenerative changes.The soft tissues are unremarkable. IMPRESSION: .1. No acute bony abnormality.2. No spondylolysis or spondylolisthesis.3. Mild multilevel degenerative disc disease and mild to moderate lower lumbar spine facet arthrosis. 08/03/2018 8:53 AM SMALL ENGINE MECHANIC [facility][U] XR KNEE 3 VWS [id number] 15:55:00 Test Item Value Reference Range Interpretation Comments XR KNEE 3 VWS EXAM: XR KNEE 3 VWS BILATERAL (test code BILATERAL DATE: 07/31/2018 = XR KNEE 3 VWS 5:18 PM SMALL ENGINE MECHANIC INDICATION: BILATERAL) knee pain COMPARISON: None available TECHNIQUE: Weight-bearing AP, sunrise and lateral views of the bilateral knees DISCUSSION: No acute fracture or malalignment is identified. Right knee: Joint spaces are preserved in all three compartments There is no osteophyte formation. There is no excessive joint fluid. No soft tissue abnormality is identified. Left knee: Joint spaces are preserved in all three compartments There is no osteophyte formation. There is no excessive joint fluid. No soft tissue abnormality is identified. IMPRESSION: No acute bony abnormality. 08/03/2018 8:50 AM SMALL ENGINE MECHANIC [facility][U] XRAY ELBOW MIN 3 VWS LEFT [id number] 09:37:00 Test Item Value Reference Range Interpretation Comments XR ELBOW MIN 3 VWS EXAM: XR ELBOW MIN 3 VWS LEFT (test code = LEFT DATE: 07/15/2018 XR ELBOW MIN 3 VWS 10:19 AM SMALL ENGINE MECHANIC INDICATION: LEFT) elbow pain COMPARISON: None available TECHNIQUE: AP, lateral and oblique radiographs of the left elbow FINDINGS: No fracture, periosteal reaction, or erosions identified. Joint alignment is normal. Minimal enthesopathy at the sublime tubercle noted. Soft tissues are unremarkable.No joint effusion present. IMPRESSION:Minimal enthesopathy at the sublime tubercle. 07/15/2018 11:02 AM SMALL ENGINE MECHANIC [facility] Extremity upper (non-vascular) [id number] 11:31:00Left elbow ultrasound dated 06/30/2018HISTORY: Concern for cubital tunnel syndrome.COMPARISON: NoneTECHNIQUE:Utilizing a high-frequency linear transducer, sonographic images of the leftelbow were obtained in the transverse and sagittal planes.2 cm distal to the medial epicondyle is focal enlargement of the ulnar nervewhich measures 0.4 x 0.2 cm. There is an abnormal rounded morphology of theulnar nerve at this level. The patient reports focal symptoms at this level.Proximal to this area of focal enlargement, the ulnar nerve measures 0.5 cm x0.2 cm but appears more elongated.Limited ultrasound imagesof the lateral epicondyle demonstrate heterogeneoussignal of the common extensor tendon at its attachment to the lateralepicondyle with enthesopathy noted.IMPRESSION:1. Enlargement and scarring of theulnar nerve 2 cm distal to the medialepicondyle. This likely represents a focal area of mononeuritiswith adjacentscarring. The patient reports focal pain on this area during examination.2. The ulnar nerve proximal and distal to this area is normal.3. Lateral epicondyle enthesopathy and common extensor tendinosis at itsattachment to the lateral epicondyle.--This report was dictated by a Radiology Re sident/Fellow/Physician [employer]. Ihave personallyreviewed the images as well as the interpretationand agree with the findings.Read by: Jesu Bourgeois MD Resident/Fellow/PhysicianAssistant: Jesu Bourgeois MDDictated Date/time: 06/30/18 14:16Electronically Signed by: Taylor Lee MD 06/30/1817:53FINAL REPORTUnC[facility]] HEMOGLOBIN [id number] 13:52:01 Test Item Value Reference Range Interpretation Comments Hemoglobin A1c; Above High Threshold 5.7 % <=5.6 (test code = 4548-4) [facility]] TSH, 3RD GENERATION W/REFLEX TO FT4 2018-06-11 13:52:01 Test Item Value Reference Range Interpretation Comments TSH (test code = 92129-6) 0.824 {uIU/ml} 0.360-3.740 [facility]] VITAMIN [id number] 13:52:01 Test Item Value Reference Range Interpretation Comments Vitamin B6 6.5 {UG/L} 2.0-32.8 This test was d eveloped and its Level (test performance code = characteristics determined by Vitamin B6 [facility]. It has not been Level) cleared orappro darion by the Food and Drug Administration. Performed At: [facility] [address] [id number] Ybarra MD Ph:[phone] [facility]] Zinc [id number] 13:52:01 Test Item Value Reference Range Interpretation Comments Zinc Level (test code 72 ug/dL 56-134 Detect ion Limit = = Zinc Level) 5Performed At: [facility] [address] [id number] Ybarra MD Ph:[phone] [facility]] [id number] 13:52:01 Test Item Value Reference Range Interpretation Comments Copper Level (test 126 ug/dL 72-166 Detection Limit = code = Copper Level) 5Perfor med At: [facility] [address] [id number] Ybarra MD Ph:[phone] [facility]] VITAMIN B1, WHOLE [id number] 13:52:01 Test Item Value Reference Range Interpretation Comments Vitamin B1 121.4 66.5-200.0 This test was d eveloped and its Level (test nmol/L performance code = characteristics determined by Vitamin B1 [facility]. It has not been Level) cleared orappro darion by the Food and Drug Administration. Performed At: [facility] [id number] [place], [place] [id number] ra Amada HUYNH Ph:[phone] [facility][H] Immunofixation Eletrophoresis [id number] 13:52:01 Test Item Value Reference Range Interpretation Comments Urine Immunofixation SEE NOTES No immu noreactivity is Electrophoresis present in a ny of the Pattern (test code = lanes. Urine Immunofixation Electrophoresis Pattern) Urine Immunofixation SEE NOTES Immunof ixation Electrophoresis electrophore sis did Interpretation (test not det ect any code = Urine immunoreactivit y in Immunofixation theexamined u rine Electrophoresis specimen. No Interpretation) monoclonal immunoglobulins or free kappa or lambdalight cris ins are identified.The EMR has been reviewed f or relevant histor y. Elisa personall y reviewed the te st results and con cur with the resident'sinter pretati on. CPT 99154-WSPmkllga ruslan Signature Tatyana Alvarado MD (Path) 06/16/18 10:46 AM [facility][H] Immunofixation [id number] 13:52:01 Test Item Value Reference Interpretation Comments Range Immunofixation SEE NOTES Diffusely sta ining Electrophoresis immunoreacti vity is present Pattern (test code in the Ig G, IgA, IgM, kappa, = Immunofixation andlambda l anes in a normal Electrophoresis polyclonal d istribution. No Pattern) monoclonalimmun oglobulins are detected. Immunofixation SEE NOTES The serum imm unofixation Electrophoresis electrophore sis demonstrates Interpretation polyclonal di stributionof (test code = immunoglobulins . No Immunofixation monoclonal im munoglobulins Electrophoresis are detected .The Interpretation) electronicme dical record has been reviewed f or relevant history. I have personallyrevie wed the test results and con cur with the resident's inte rpretation. [id number] tronic Signature Tatyana Alvarado MD (Path) 11:06 AM [facility]iciansHEPATITIS A ANTIBODY, [id number] 14:39:00 Test Item Value Reference Range Interpretation Comments HEPATITIS A IGG ANTIBODY (BEAKER) Reactive Nonreactive A (test code = 2797) HEPATITIS B SURFACE [id number] 14:39:00 Test Item Value Reference Range Interpretation Comments HEPATITIS B SURFACE ANTIBODY < mIU/mL <8.0 (BEAKER) (test code = 647) HEPATITIS B SURFACE [id number] 11:39:00 Test Item Value Reference Range Interpretation Comments HEPATITIS B SURFACE ANTIGEN (2) Nonreactive Nonreactive (BEAKER) (test code = 2585) HEPATITIS C [id number] 11:39:00 Test Item Value Reference Range Interpretation Comments HEPATITIS C ANTIBODY (BEAKER) Nonreactive Nonreactive (test code = 367) HEPATIC FUNCTION [id number] 11:37:00 Test Item Value Reference Range Interpretation Comments TOTAL PROTEIN (BEAKER) (test code = 7.7 gm/dL 6.0-8.3 770) ALBUMIN (BEAKER) (test code = 1145) 4.0 g/dL 3.5-5.0 BILIRUBIN TOTAL (BEAKER) (test code 0.8 mg/dL 0.2-1.2 = 377) BILIRUBIN DIRECT (BEAKER) (test 0.3 mg/dL 0.1-0.5 code = 706) ALKALINE PHOSPHATASE (BEAKER) (test 127 U/L 40-150 code = 346) AST (SGOT) (BEAKER) (test code = 16 U/L 5-34 353) ALT (SGPT) (BEAKER) (test code = 17 U/L 6-55 347) GAMMA GLUTAMYL TRANSFERASE (GGT)2017-09-29 11:37:00 Test Item Value Reference Range Interpretation Comments GAMMA GLUTAMYL TRANSFERASE (BEAKER) 30 U/L 9-64 (test code = 364) [id number] 19:33:37 Test Item Value Reference Range Interpretation Comments Hct (test code = Hct) 38.9 36.0-48.0 [facility] [id number] 19:33:37 Test Item Value Reference Range Interpretation Comments Hgb (test code = Hgb) 12.9 12.0-16.0 [facility] CenterGhybyfiJIAUHPKLYE1555-26-07 19:33:37 Test Item Value Reference Range Interpretation Comments MCHC (test code = MCHC) 33.3 32.0-36.0 [facility]2022[facility]57-55 19:33:37 Test Item Value Reference Range Interpretation Comments MCH (test code = MCH) 28.1 pg 27.0-31.0 [id number] 19:33:37 Test Item Value Reference Range Interpretation Comments MPV (test code = MPV) 8.3 7.4-10.4 [id number] 19:33:37 Test Item Value Reference Range Interpretation Comments RDW (test code = RDW) 13.3 11.5-14.5 [facility]bergVkvphkcZVXHNKZWZR0271-28-25 19:33:37 Test Item Value Reference Range Interpretation Comments Platelet (test code = Platelet) 234 133-450 [id number] 19:33:37 Test Item Value Reference Range Interpretation Comments WBC (test code = WBC) 5.0 3.7-10.4 [id number] 19:33:37 Test Item Value Reference Range Interpretation Comments RBC (test code = RBC) 4.60 4.20-5.40 [id number] 19:33:37 Test Item Value Reference Range Interpretation Comments Eosinophils # (test code 0.1 See_Comment [A utomated message] The = Eosinophils #) system whic h generated this result tra nsmitted reference range : <=0.5. The reference r manuelito was not used to int erpret this result as normal/abnormal . [id number] 19:33:37 Test Item Value Reference Range Interpretation Comments Monocytes # (test code 0.5 See_Comment [Aut omated message] The = Monocytes #) system which generated this result tra nsmitted reference range : <=0.8. The reference r manuelito was not used to int erpret this result as normal/abnormal . [id number] 19:33:37 Test Item Value Reference Range Interpretation Comments Lymphocytes # (test code = Lymphocytes 1.7 1.0-5.5 #) [facility] [id number] 19:33:37 Test Item Value Reference Range Interpretation Comments Segs-Bands # (test code = Segs-Bands #) 2.6 1.5-8.1 [id number] 19:33:37 Test Item Value Reference Range Interpretation Comments Segs (test code = Segs) 52.7 45.0-75.0 [id number] 19:33:37 Test Item Value Reference Range Interpretation Comments Basophils (test code = 1.0 See_Comment [Aut omated message] The Basophils) system which ge nerated this result tra nsmitted reference range : <=1.0. The reference r manuelito was not used to int erpret this result as normal/abnormal . [facility] [id number] 19:33:37 Test Item Value Reference Range Interpretation Comments Eosinophils (test code = 2.0 See_Comment [A utomated message] The Eosinophils) system which ge nerated this result tra nsmitted reference range : <=4.0. The reference r manuelito was not used to int erpret this result as normal/abnormal . [facility] [id number] 19:33:37 Test Item Value Reference Range Interpretation Comments Monocytes (test code = Monocytes) 10.3 2.0-12.0 [facility] [id number] 19:33:37 Test Item Value Reference Range Interpretation Comments Lymphocytes (test code = Lymphocytes) 34.0 20.0-40.0 [facility]2017-02-21 19:33:37 Test Item Value Reference Range Interpretation Comments Magnesium Lvl (test code = Magnesium 1.7 1.8-2.4 Lvl) [facility]2017-02-21 19:33:37 Test Item Value Reference Range Interpretation Comments Calcium Lvl (test code = Calcium Lvl) 8.9 8.5-10.5 [facility]2017-02-21 19:33:37 Test Item Value Reference Range Interpretation Comments eGFR (test code = eGFR) 118 [facility]2017-02-21 19:33:37 Test Item Value Reference Range Interpretation Comments CO2 (test code = CO2) 27 24-32 [facility]2017-02-21 19:33:37 Test Item Value Reference Range Interpretation Comments Chloride Lvl (test code = Chloride Lvl) 108 95-109 [facility]2017-02-21 19:33:37 Test Item Value Reference Range Interpretation Comments Sodium Lvl (test code = Sodium Lvl) 142 135-145 [facility]2017-02-21 19:33:37 Test Item Value Reference Range Interpretation Comments Potassium Lvl (test code = Potassium 4.0 3.5-5.1 Lvl) [facility]2017-02-21 19:33:37 Test Item Value Reference Range Interpretation Comments BUN (test code = BUN) 16 7-22 [facility]2017-02-21 19:33:37 Test Item Value Reference Range Interpretation Comments Creatinine Lvl (test code = Creatinine 0.63 0.50-1.40 Lvl) [facility]2017-02-21 19:33:37 Test Item Value Reference Range Interpretation Comments Glucose Lvl (test code = Glucose Lvl) 83 70-99 [facility]2017-02-21 19:33:37 Test Item Value Reference Range Interpretation Comments AGAP (test code = AGAP) 11.0 10.0-20.0 [facility] K[id number] 19:33:37 Test Item Value Reference Range Interpretation Comments MCV (test code = MCV) 84.4 80.0-98.0 [facility]
[2021-09-23 13:39] LABS: Urine Blood Trace-lysed (Negative); Urine Glucose Negative (Negative); Urine Protein Negative (Negative); Urine Specific Gravity 1.025 (1.005-1.030); Urine pH 6.5 (5.0-7.0)
[2021-09-23 13:44] LABS: Absolute Lymphocytes (CBC) 2.1 K/uL (0.7-4.9); Hematocrit 42.6 % (36.0-45.0); Lymphocytes % 33.5 % (15.3-44.8); MPV 7.9 fL (7.6-11.3); RBC Red Blood Cell Count 5.15 M/uL (3.86-4.86)
[2021-09-23 14:00] LABS: Albumin 3.8 g/dL (3.4-5.0); Bilirubin Direct 0.1 mg/dL (0-0.2); Bilirubin Total 0.6 mg/dL (0.2-1.0); Potassium 3.7 mmol/L (3.5-5.1); Protein, Total 8.2 g/dL (6.4-8.2)
--- NOTE | 2021-09-23 14:28 | RAD REPORT ---
EXAM DESCRIPTION: US - Abdomen Exam Limited - 09/23/2021 2:20 pm CLINICAL HISTORY: ABD PAIN COMPARISON: Abdomen Pelvis W Contrast dated 06/05/2020Abdomen Pelvis W Contrast dated 06/05/2020 FINDINGS: The gallbladder demonstrates no gallstones. No pericholecystic fluid or gallbladder wall t hickening. The common bile duct is normal measuring 2 mm. The liver demonstrates no findings of intrahepatic biliary dilatation. IMPRESSION: Unremarkable examination.
[2021-09-23] MEDS ORDERED: ONDANSETRON 4 MG/2 ML VIAL ONE (14:45)
[2021-09-23] MEDS ORDERED: MORPHINE 4 MG/ML SYR ONE (14:45)
--- NOTE | 2021-09-23 15:23 | RAD REPORT ---
EXAM DESCRIPTION: CT - Chest For Pe Angio - 09/23/2021 3:10 pm CLINICAL HISTORY: right sided chest pain COMPARISON: No comparisons FINDINGS: Chest Wall: No suspicious thyroid nodules or pathologic lymphadenopathy. Lungs: No acute abnormality. Pleura: No significant effusions or pneumothorax. Mediastinum/mike: No pathologic lymphadenopathy. Pulmonary arteries/Aorta: No filling defect identified. No aortic aneurysm. Heart: No significant pericardial effusion. Normal heart size. Upper abdomen: No acute abnormality. Bones: No acute abnormality. All CT scans are performed using dose optimization technique as appropriate and may include automated exposure control or mA/KV adjustment according to patient size. IMPRESSION: Negative for pulmonary embolism. No acute findings in the chest.
--- NOTE | 2021-09-23 15:25 | RAD REPORT ---
EXAM DESCRIPTION: CTAbdomen Pelvis W Contrast - 09/23/2021 3:10 pm CLINICAL HISTORY: right sided abdominal pain COMPARISON: Abdomen Pelvis W Contrast dated 06/05/2020 TECHNIQUE: CT of the abdomen and pelvis was performed. All CT scans are performed using dose optimization technique as appropriate and may include automated exposure control or mA/KV adjustment according to patient size. FINDINGS: Lower chest: No acute abnormality. Liver: No acute abnormality or suspicious lesions. Biliary: No biliary ductal dilatation. Stomach: No significant focal abnormality. Duodenum: No significant focal abnormality. Pancreas: No significant abnormality. Spleen: No significant abnormality. Adrenal: No suspicious lesions. Kidney/ureter: No hydronephrosis. No renal calculi. Retroperitoneum: No retroperitoneal adenopathy. Vascular: No aneurysm. Mild atherosclerosis. Bowel: No significant focal abnormality. Normal appendix. Peritoneum: No ascites or free air. Small fat containing ventral hernia . Bladder: Grossly unremarkable. Reproductive: No adnexal masses. Hysterectomy . Bones: No acute fracture. Other: n/a IMPRESSION: No acute intra-abdominal or pelvic finding. Normal appendix. No urinary tract calculi.
--- NOTE | 2021-09-23 15:32 | ER ---
Nurse's Notes [facility] Name: Adriana Sinclair Age: 60 yrs Sex: Female : 1960 Arrival Date: 09/23/2021 Time: 13:03 Bed 23 Private MD: Diagnosis: Epigastric pain Presentation: 09/23 13:08 Chief complaint: Patient states: Pt c/o right flank pain with nausea that began on last ll1 Friday. Denies active vomiting. Coronavirus screen: Vaccine status: Patient reports receiving the 2nd dose of the covid vaccine. Ebola Screen: No symptoms or risks identified at this time. Initial Sepsis Screen: Does the patient have a suspected source of infection? No. Patient's initial sepsis screen is negative. Risk Assessment: Do you want to hurt yourself or someone else? Patient reports no desire to harm self or others. Onset of symptoms was September 16, 2021. 13:08 Method Of Arrival: Ambulatory ll1 13:08 Acuity: JORGE 3 ll1 13:53 Initial Sepsis Screen: Does the patient meet any 2 criteria? No. Patient's initial lr4 sepsis screen is negative. Does the patient have a suspected source of infection? No. Patient's initial sepsis screen is negative. Historical: - Allergies: 13:55 Aspirin; lr4 - Home Meds: 13:09 Dexilant Oral [Active]; ll1 13:55 Ativan Oral 1 tab as needed [Active]; lr4 - PMHx: 13:55 Aneurysm; Anxiety; Gastric Reflux; lr4 - PSHx: 13:55 hysterectomy; Craniotomy; lr4 - Immunization history:: Pneumococcal vaccine is not up to date, Flu vaccine is not up to date. - Social history:: Smoking status: Patient denies any tobacco usage or history of. Screenin:52 Abuse screen: Denies threats or abuse. Nutritional screening: No deficits noted. lr4 Tuberculosis screening: No symptoms or risk factors identified. Fall Risk None identified. Assessment: 13:47 General: Appears in no apparent distress. comfortable, Behavior is calm, cooperative. lr4 Pain: Complains of pain in abdomen Pain currently is 7 out of 10 on a pain scale. Quality of pain is described as dull. Neuro: No deficits noted. Cardiovascular: No deficits noted. Respiratory: No deficits noted. GI: Abdomen is flat, non-distended, Bowel sounds present X 4 quads. Abd is soft X 4 quads Abd is non tender Reports upper abdominal pain, bloating, gaseousness. : No deficits noted. Musculoskeletal: No deficits noted. 15:41 Reassessment: Patient states feeling better. Patient states symptoms have improved. Pt lr4 departed ed ambulatory with all personal effects, pt in nad, vss. Vital Signs: 13:11 BP 160 / 78; Pulse 81; Resp 16; Temp 97.9; Pulse Ox 100% ; Weight 88.45 kg; Height 5 ll1 ft. 10 in. (177.80 cm); 15:40 BP 152 / 71; Pulse 71; Resp 18; Pulse Ox 99% on R/A; Pain 4/10; lr4 13:11 Body Mass Index 27.98 (88.45 kg, 177.80 cm) ll1 ED Course: 13:03 Patient arrived in ED. ds1 13:06 Aime Coronel PA is PHCP. [facility] 13:06 oRshan Montes MD is Attending Physician. [facility] 13:09 Triage completed. ll1 13:30 Inserted saline lock: 20 gauge in right antecubital area, using aseptic technique. lr4 13:46 Rosa Sánchez, ELIE is Primary Nurse. lr4 13:52 Arm band placed on right wrist. lr4 13:53 No provider procedures requiring assistance completed. lr4 13:53 Patient has correct armband on for positive identification. Bed in low position. Call lr4 light in reach. Side rails up X 1. Warm blanket given. 14:20 US Abdomen Limited In Process Unspecified. EDMS 15:10 CT Chest For PE Angio In Process Unspecified. EDMS 15:10 CT Abd/Pelvis - IV Contrast Only In Process Unspecified. EDMS 15:41 IV discontinued, intact, bleeding controlled, No redness/swelling at site. Pressure lr4 dressing applied. Administered Medications: 14:58 Drug: Zofran (Ondansetron) 4 mg Route: IVP; Site: right antecubital; lr4 15:42 Follow up: Response: Nausea is decreased lr4 14:59 Drug: morphine 2 mg Route: IVP; Site: right antecubital; lr4 15:42 Follow up: Response: No adverse reaction; Pain is decreased lr4 Outcome: 13:55 Condition: good lr4 15:32 Discharge ordered by . jyothim 15:41 Discharged to home ambulatory. lr4 15:41 Discharge instructions given to patient. lr4 15:43 Patient left the ED. lr4 Signatures: Dispatcher [employer] EDMS Aime Coronel PA PA jmm Sanford, Demi ds1 Keturah Kennedy RN RN ll1 Rosa Sánchez RN RN lr4 Corrections: (The following items were deleted from the chart) 13:09 Allergies: Aspirin; ll1 lr4 13:55 13:09 Home Meds: Ativan Oral as needed; ll1 lr4 : 13:09 PMHx: Aneurysm; ll1 lr4 : 13:09 PMHx: Anxiety; ll1 lr4 : 13:09 PMHx: Gastric Reflux; ll1 lr4 : 13:09 PSHx: hysterectomy; ll1 lr4 : 13:09 PSHx: Craniotomy; ll1 lr4
--- NOTE | 2021-09-23 15:32 | EDPHYS ---
Physician Documentation [facility] Name: Adriana Sinclair Age: 60 yrs Sex: Female : 1960 Arrival Date: 09/23/2021 Time: 13:03 Bed 23 Private MD: ED Physician Roshan Montes HPI: 09/23 13:19 This 60 yrs old Black Female presents to ER via Ambulatory with complaints of R Sided jmm Pain, Nausea. 13:19 The patient presents with abdominal pain. Onset: The symptoms/episode began/occurred jmm gradually, 2 day(s) ago. The symptoms radiate to right back. Associated signs and symptoms: Pertinent positives: nausea. The symptoms are described as achy. Modifying factors: The symptoms are alleviated by nothing, the symptoms are aggravated by food. The patient has experienced similar episodes in the past. Historical: - Allergies: 13:55 Aspirin; lr4 - Home Meds: 13:09 Dexilant Oral [Active]; ll1 13:55 Ativan Oral 1 tab as needed [Active]; lr4 - PMHx: 13:55 Aneurysm; Anxiety; Gastric Reflux; lr4 - PSHx: 13:55 hysterectomy; Craniotomy; lr4 - Immunization history:: Pneumococcal vaccine is not up to date, Flu vaccine is not up to date. - Social history:: Smoking status: Patient denies any tobacco usage or history of. ROS: 13:19 Constitutional: Negative for fever, chills, and weight loss, Cardiovascular: Negative jmm for chest pain, palpitations, and edema, Respiratory: Negative for shortness of breath, cough, wheezing, and pleuritic chest pain. 13:19 Abdomen/GI: Positive for abdominal pain. 13:19 All other systems are negative. Exam: 13:19 Constitutional: This is a well developed, well nourished patient who is awake, alert, jmm and in no acute distress. Head/Face: atraumatic. Eyes: EOMI, no conjunctival erythema appreciated ENT: Moist Mucus Membranes Neck: Trachea midline, Supple Chest/axilla: Normal chest wall appearance and motion. Cardiovascular: Regular rate and rhythm. No edema appreciated Respiratory: Normal respirations, no respiratory distress appreciated 13:19 Skin: General appearance color normal MS/ Extremity: Moves all extremities, no obvious deformities appreciated, no edema noted to the lower extremities Neuro: Awake and alert Psych: Behavior is normal, Mood is normal, Patient is cooperative and pleasant 13:19 Abdomen/GI: Inspection: abdomen appears normal, Bowel sounds: normal, Palpation: soft, mild abdominal tenderness, in the right upper quadrant. Vital Signs: 13:11 BP 160 / 78; Pulse 81; Resp 16; Temp 97.9; Pulse Ox 100% ; Weight 88.45 kg; Height 5 ll1 ft. 10 in. (177.80 cm); 15:40 BP 152 / 71; Pulse 71; Resp 18; Pulse Ox 99% on R/A; Pain 4/10; lr4 13:11 Body Mass Index 27.98 (88.45 kg, 177.80 cm) ll1 MDM: 13:23 Patient medically screened. [facility] 15:31 Data reviewed: vital signs, nurses notes. Counseling: I had a detailed discussion with renaldo the patient and/or guardian regarding: the historical points, exam findings, and any diagnostic results supporting the discharge/admit diagnosis, the need for outpatient follow up, to return to the emergency department if symptoms worsen or persist or if there are any questions or concerns that arise at home. 09/23 13:19 Order name: Basic Metabolic Panel; Complete Time: 14:02 09/23 13:19 Order name: CBC with Diff; Complete Time: 14:02 09/23 13:19 Order name: Hepatic Function; Complete Time: 14:02 09/23 13:19 Order name: Lipase; Complete Time: 14:02 09/23 13:36 Order name: US Abdomen Limited; Complete Time: 14:[address] [facility] 09/23 13:39 Order name: Urine Dipstick-Ancillary; Complete Time: 13:40 [facility] 09/23 13:19 Order name: IV Saline Lock; Complete Time: 13:52 09/23 13:19 Order name: Labs collected and sent; Complete Time: 13:52 09/23 14:34 Order name: CT Chest For PE Angio; Complete Time: 15:[address] [facility] 09/23 14:34 Order name: CT Abd/Pelvis - IV Contrast Only; Complete Time: 15:[address] [facility] 09/23 13:19 Order name: Urine Dipstick-Ancillary (obtain specimen); Complete Time: 13:52 ss Administered Medications: 14:58 Drug: Zofran (Ondansetron) 4 mg Route: IVP; Site: right antecubital; lr4 15:42 Follow up: Response: Nausea is decreased lr4 14:59 Drug: morphine 2 mg Route: IVP; Site: right antecubital; lr4 15:42 Follow up: Response: No adverse reaction; Pain is decreased lr4 Disposition: 09/24 09:14 Co-signature as Attending Physician, Roshan Montes MD I agree with the assessment and jr plan of care. Disposition Summary: 09/23/21 15:32 Discharge Ordered Location: Home [facility] Condition: Stable [facility] Diagnosis - Epigastric pain [facility] Followup: jm - With: Private Physician - When: 2 - 3 days - Reason: Recheck today's complaints, Continuance of care, Re-evaluation by your physician Discharge Instructions: - Discharge Summary Sheet [facility] - Abdominal Pain, Adult [facility] Forms: - Medication Reconciliation Form [facility] - Thank You Letter jm - Antibiotic Education jm - Prescription Opioid Use [facility] Prescriptions: - dicyclomine 20 mg Oral Tablet - take 1 tablet by ORAL route 3 times per day; 20 tablet; Refills: 0, Product jm Selection Permitted Signatures: Dispatcher [employer] EDMS Aime Coronel PA PA [facility] Taryn Santana RN RN ss Lewis, Lynsay, RN RN ll1 Roshan Montes MD MD [id number] Rosa Sánchez RN RN lr4 Corrections: (The following items were deleted from the chart) 09/23 13:52 13:37 Abdomen Limited+US.RAD.BRZ ordered. EDMS EDMS 13:55 13:09 Allergies: Aspirin; ll1 lr4 13:55 13:09 Home Meds: Ativan Oral as needed; ll1 lr4 13:55 13:09 PMHx: Aneurysm; ll1 lr4 13:55 13:09 PMHx: Anxiety; ll1 lr4 13:55 13:09 PMHx: Gastric Reflux; ll1 lr4 13:55 13:09 PSHx: hysterectomy; ll1 lr4 13:55 13:09 PSHx: Craniotomy; ll1 lr4 14:40 14:34 Chest For PE Angio+CT.RAD.BRZ ordered. EDMS EDMS 14:40 14:34 Abdomen Pelvis W Con+CT.RAD.BRZ ordered. EDMS EDMS 14: 14:52 Abdomen Pelvis W Con+CT.RAD.BRZ ordered. EDMS EDMS 14:56 14:52 Chest For PE Angio+CT.RAD.BRZ ordered. EDMS EDMS
[2021-09-23 15:54] VITALS: TEMP 97.9
[2021-09-23 15:56] VITALS: BP 152/71; O2SAT 99
== END 2021-09-23 15:43 | disposition home or self-care (01) ==
LOC: ER 13:00
DX: R10.13 Epigastric pain (principal); R11.0 Nausea; F41.9 Anxiety disorder, unspecified; Z88.6 Allergy status to analgesic agent
CPT/HCPCS: 85025; 80048; 36415; 80076; 81003; 83690; 71275; 74177; 76705; 96375; 96374; 99283; Q9967; J2405